=== PATIENT | male | born 1940 | race Caucasian/White ===

== ENCOUNTER 2020-02-17 02:13 | Emergency (ER) | payer MEDICARE, OTHER ==
[2020-02-17 02:28] VITALS: BP 186/78; PULSE 65
--- NOTE | 2020-02-17 03:00 | EDM.PDOC ---
ED HPI GENERAL MEDICAL PROBLEM - General Chief Complaint: Abdominal Pain Stated Complaint: right side abdominal pain Time Seen by Provider: 02/17/20 02:26 Source of Information: Reports: Patient History Limitations: Reports: No Limitations - History of Present Illness INITIAL COMMENTS - FREE TEXT/NARRATIVE: This is an 79-year-old male. Onset around 11 PM with right-sided abdominal pain. He has no history of kidney stones. He is having no urinary symptoms. He did have a bowel movement yesterday morning and he does state he is constipated. He has had no fever no chills no cough no congestion. The abdominal pain does not seem to move anywhere. It is more of a constant throbbing aching type pain. He is able to move about without difficulty and walk with no difficulty despite the abdominal pain. He is he had some slight nausea initially but no nausea now no vomiting. Right Flank Pain Score (Numeric/FACES): 8 - Related Data Allergies Allergy/AdvReac Type Severity Reaction Status Date / Time No Known Allergies Allergy Verified 02/17/20 02:28 Home Meds: Home Meds Aspirin [Halfprin] 81 mg PO DAILY 06/02/14 [History] Calcium Carbonate/Vitamin D3 [Calcium 500-Vit D3 125 Caplet] 1 tab PO BID 06/02/14 [History] Ferrous Sulfate [Iron] 325 mg PO BID 06/02/14 [History] Finasteride [Proscar] 5 mg PO DAILY 06/02/14 [History] Glucosamine/Msm/Chondroitin A [Gpagivtoqxv-Bpyyvzkpv-ZJG Cplt] 1,500 mg PO BID 06/02/14 [History] Lisinopril 5 mg PO DAILY 06/02/14 [History] Metoprolol Succinate 50 mg PO DAILY 06/02/14 [History] Multivitamin [Multivitamins] 1 tab PO DAILY 06/02/14 [History] [place]-3 Fatty Acids [Fish Oil] 1 cap PO DAILY 06/02/14 [History] Omeprazole [Prilosec] 20 mg PO DAILY 06/02/14 [History] Simvastatin [Zocor] 20 mg PO BEDTIME 06/02/14 [History] Tamsulosin [Flomax] 0.4 mg PO DAILY 06/02/14 [History] allopurinoL [Zyloprim] 150 mg PO DAILY 06/02/14 [History] amLODIPine [Norvasc] 1 tab PO DAILY 06/02/14 [History] Acetaminophen/HYDROcodone [[place] 325-5 MG] 1 tab PO Q4H PRN #20 tablet 02/17/20 [Rx] Ondansetron [Zofran] 4 mg PO Q6H PRN #15 tab 02/17/20 [Rx] predniSONE [Prednisone] 1 tab PO DAILY PRN 02/17/20 [History] Past Medical History HEENT History: Reports: Cataract, Hard of Hearing Cardiovascular History: Reports: High Cholesterol, Hypertension Gastrointestinal History: Reports: GERD Genitourinary History: Reports: BPH Musculoskeletal History: Reports: Arthritis, Back Pain, Chronic Neurological History: Reports: Migraines - Past Surgical History HEENT Surgical History: Reports: Cataract Surgery GI Surgical History: Reports: Appendectomy Social & Family History - Family History Family Medical History: Noncontributory - Tobacco Use Smoking Status *Q: Never Smoker Second Hand Smoke Exposure: No - Caffeine Use Caffeine Use: Reports: Soda - Recreational Drug Use Recreational Drug Use: No ED ROS GENERAL - Review of Systems Review Of Systems: See Below Constitutional: Reports: Fatigue. Denies: Fever, Chills HEENT: Reports: No Symptoms Respiratory: Reports: No Symptoms Cardiovascular: Denies: Chest Pain Endocrine: Reports: Fatigue GI/Abdominal: Reports: Abdominal Pain, Constipation, Nausea, Vomiting. Denies: Diarrhea Musculoskeletal: Reports: Other (Generalized joint stiffness) Skin: Reports: No Symptoms Neurological: Reports: No Symptoms Psychiatric: Reports: No Symptoms ED EXAM, GI/ABD - Physical Exam Exam: See Below Exam Limited By: No Limitations General Appearance: Alert, WD/WN, No Apparent Distress Eyes: Bilateral: Normal Appearance Ears: Normal External Exam Nose: Normal Inspection Throat/Mouth: Normal Voice, No Airway Compromise Head: Normocephalic Neck: Limited Range of Motion Respiratory/Chest: No Respiratory Distress, Lungs Clear, Normal Breath Sounds Cardiovascular: Regular Rate, Rhythm, No Murmur GI/Abdominal Exam: Normal Bowel Sounds, Soft, Other (Patient of all 4 quadrants and the right flank does not reveal any marked increased tenderness, there is no peritoneal symptoms and no rebound noted he is not particularly tender in the right lower quadrant or McBurney's point) Back Exam: Decreased Range of Motion Extremities: Normal Inspection, Other (Fair range of motion of his extremity joints) Neurological: Alert, Oriented Psychiatric: Normal Affect, Normal Mood Skin Exam: Warm, Dry Course - Vital Signs Last Recorded V/S: Last Vital Signs Temp 98.6 F 02/17/20 02:23 Pulse 65 02/17/20 02:23 Resp 20 02/17/20 02:23 BP 186/78 H 02/17/20 02:23 Pulse Ox 96 02/17/20 02:23 - Orders/Labs/Meds Orders: Active Orders 24 hr Category Date Time Status Abdomen 2V AP Flat Upright [CR] Stat Exams 02/17/20 02:55 Taken Abdomen Pelvis w Cont [CT] Stat Exams 02/17/20 04:05 Taken Labs: Laboratory Tests 02/17/20 02/17/20 02/17/20 Range/Units 03:08 03:08 03:30 WBC 8.82 (4.23-9.07) K/mm3 RBC 3.77 L (4.63-6.08) M/mm3 Hgb 12.2 L (13.7-17.5) gm/dl Hct 37.1 L (40.1-51.0) % MCV 98.4 H (79.0-92.2) fl MCH 32.4 H (25.7-32.2) pg MCHC 32.9 (32.2-35.5) g/dl RDW Std Deviation 45.8 H (35.1-43.9) fL Plt Count 121 L (163-337) K/mm3 MPV 8.9 L (9.4-12.3) fl Neut % (Auto) 81.2 H (34.0-67.9) % Lymph % (Auto) 10.0 L (21.8-53.1) % Becker % (Auto) 7.9 (5.3-12.2) % Eos % (Auto) 0.6 L (0.8-7.0) Baso % (Auto) 0.1 (0.1-1.2) % Neut # (Auto) 7.16 H (1.78-5.38) K/mm3 Lymph # (Auto) 0.88 L (1.32-3.57) K/mm3 Becker # (Auto) 0.70 (0.30-0.82) K/mm3 Eos # (Auto) 0.05 (0.04-0.54) K/mm3 Baso # (Auto) 0.01 (0.01-0.08) K/mm3 Sodium 141 (136-145) mEq/L Potassium 4.4 (3.5-5.1) mEq/L Chloride 104 (98-107) mEq/L Carbon Dioxide 23 (21-32) mEq/L Anion Gap 18.4 H (5-15) BUN 39 H (7-18) mg/dL Creatinine 2.5 H (0.7-1.3) mg/dL Est Cr Clr Drug Dosing 22.42 mL/min Estimated GFR (MDRD) 25 (>60) mL/min BUN/Creatinine Ratio 15.6 (14-18) Glucose 171 H (83-115) mg/dL Calcium 8.6 (8.5-10.1) mg/dL Total Bilirubin 1.2 H (0.2-1.0) mg/dL AST 22 (15-37) U/L ALT 26 (16-63) U/L Alkaline Phosphatase 48 (46-116) U/L Total Protein 7.2 (6.4-8.2) g/dl Albumin 3.7 (3.4-5.0) g/dl Globulin 3.5 gm/dL Albumin/Globulin Ratio 1.1 (1-2) Urine Color Yellow (Yellow) Urine Appearance Clear (Clear) Urine pH 5.5 (5.0-8.0) Ur Specific [place] 1.025 (1.005-1.030) Urine Protein 2+ H (Negative) Urine Glucose (UA) Negative (Negative) Urine Ketones Negative (Negative) Urine Occult Blood 1+ H (Negative) Urine Nitrite Negative (Negative) Urine Bilirubin Negative (Negative) Urine Urobilinogen 0.2 (0.2-1.0) Ur Leukocyte Esterase 1+ H (Negative) U Hyaline Cast (Auto) 10-20 H (0-5) /lpf Urine RBC 0-5 (0-5) /hpf Urine WBC 20-30 H (0-5) /hpf Urine WBC Clumps Few (NOT SEEN) /hpf Ur Epithelial Cells Not seen (0-5) /hpf Amorphous Sediment Few H (NOT SEEN) /hpf Urine Bacteria Few (FEW) /hpf Urine Mucus Moderate H (FEW) /hpf Meds: Medications Discontinued Medications Generic Name Dose Route Start Last Admin Trade Name Freq PRN Reason Stop Dose Admin Diatrizoate Meglum/Diatrizoate Sod 40 ml 02/17/20 03:30 02/17/20 04:23 Gastrografin 37% PO 02/17/20 03:31 40 ml ONETIME ONE Administration Ketorolac Tromethamine 30 mg 02/17/20 05:38 Toradol IM 02/17/20 05:39 ONETIME ONE Ondansetron HCl 4 mg 02/17/20 05:39 Zofran IVPUSH 02/17/20 05:40 ONETIME ONE - Radiology Interpretation Free Text/Narrative:: CT scan shows a 7 mm right UVJ stone with hydronephrosis - Re-Assessments/Exams Free Text/Narrative Re-Assessment/Exam: 02/17/20 05:43 Spoke to the patient and his regarding the right-sided kidney stone that he is going to need to follow-up with his doctor for because is big and a might not pass Departure - Departure Time of Disposition: 05:44 Disposition: Home, Self-Care 01 Condition: Fair Clinical Impression: Ureteral calculus, right, Renal colic on right side, Nausea - Discharge Information *PRESCRIPTION DRUG MONITORING PROGRAM REVIEWED*: Not Applicable *COPY OF PRESCRIPTION DRUG MONITORING REPORT IN PATIENT ANNIE: Not Applicable Prescriptions: Acetaminophen/HYDROcodone [[place] 325-5 MG] 1 tab PO Q4H PRN #20 tablet PRN Reason: Pain Ondansetron [Zofran] 4 mg PO Q6H PRN #15 tab PRN Reason: Nausea Instructions: Kidney Stones, [id number], Renal Colic, [id number] Referrals: Nasir Dillard PA-C [Primary Care Provider] - Forms: ED Department Discharge Additional Instructions: Strain your urine for the kidney stone every time you urinate, take the medicine for pain and for nausea as needed, drink lots of fluids to help push the stone, follow-up with your family doctor this week for recheck, return to the ER if the symptoms worsen or you develop a fever greater than 101 Sepsis Event Note (ED) - Evaluation Sepsis Screening Result: No Definite Risk - Focused Exam Vital Signs: Vital Signs Temp Pulse Resp BP Pulse Ox 02/17/20 02:23 98.6 F 65 20 186/78 H 96 - My Orders Last 24 Hours: My Active Orders 02/17/20 02:55 Abdomen 2V AP Flat Upright [CR] Stat 02/17/20 04:05 Abdomen Pelvis w Cont [CT] Stat - Assessment/Plan Last 24 Hours: My Active Orders 02/17/20 02:55 Abdomen 2V AP Flat Upright [CR] Stat 02/17/20 04:05 Abdomen Pelvis w Cont [CT] Stat
[2020-02-17] MEDS ORDERED: Diatrizoate Meglumine/Diatrizoate Sodium 37% 120 ML Bottle PO ONE (03:30)
[2020-02-17] MEDS ORDERED: Ketorolac 30 MG/ML SDV IM ONE (05:38)
[2020-02-17] MEDS ORDERED: Ondansetron 4 MG/2 ML SDV IVPUSH ONE (05:39)
--- NOTE | 2020-02-17 07:31 | CR ---
Abdomen: Supine view of the abdomen was obtained as well as upright view. Comparison: Subsequent CT abdomen and pelvis study performed on the same day. Multiple calcifications are seen within the kidneys compatible with nonobstructing calculi. There is 1 calcification within the pelvis which represents a distal right ureteral stone on subsequent CT study. Other calcifications are due to phleboliths as well as mild arterial calcification. Slight scoliosis and degenerative change is noted within the spine. Bowel gas pattern is normal. No free air is seen. Impression: 1. Multiple nonobstructing renal calculi. 2. Calcification is noted within the pelvis which correlates to an obstructing stone on subsequent CT exam. 3. Other findings as noted above which are felt to be nonacute. Diagnostic code #3 Study was dictated in MDT
--- NOTE | 2020-02-17 07:31 | CT ---
CT abdomen and pelvis Technique: Multiple axial sections were obtained from above the dome of the diaphragm inferiorly through the pubic symphysis. Oral contrast has been given. No intravenous contrast was utilized. Comparison: Prior abdominal x-ray performed earlier on same day (3:15 AM). No prior CT abdomen or pelvis exam is available. Prior CT chest of 06/08/14 is available. Findings: Visualized lung bases shows multiple small nodules uncertain 1 nodule shows partial calcification. This is felt compatible with a granuloma. This would make the other nodules most likely due to noncalcified granulomas. In addition, these are felt to be fairly stable from prior chest CT. Noncontrast appearance of the liver and spleen appear within normal limits. Heart is generous in size. Adrenal glands show no nodule. Kidneys show multiple calcifications compatible with nonobstructing calculi. Exophytic cyst is noted off the left kidney measuring 1.7 cm in size. Right ureter is prominent in size which is caused by an obstructing stone located within the UVJ measuring approximately 7 mm. No other ureteral calcifications are seen. Pancreas appears within normal limits. Gallbladder contains no calcified gallstones. Aorta shows atherosclerotic change which continues into the iliac vessels. No retroperitoneal adenopathy or mesenteric abnormalities are seen. Small fat-containing left inguinal hernia is noted. No free fluid or inflammatory changes appreciated. Bone window settings were reviewed which shows scattered degenerative change within the spine. Small fat-containing umbilical hernia is noted. Impression: 1. Multiple nonobstructing calculi within both kidneys. 2. 7 mm obstructing stone within the distal right ureter at the UVJ. This stone causes proximal hydronephrosis. 3. Multiple pulmonary nodules within both lung bases. These findings are felt compatible with granulomas. 4. Other nonacute findings as described above. Diagnostic code #3 Agree with preliminary report issued by [facility] ([facility] preliminary report dictated on 02/17/20, 5:57 AM Central Daylight Time) Study was dictated in MDT
== END 2020-02-17 05:55 | disposition home or self-care (01) ==
LOC: JD.ED 02:13
DX: N20.2 Calculus of kidney with calculus of ureter (principal); E78.00 Pure hypercholesterolemia, unspecified; I10 Essential (primary) hypertension; K21.9 Gastro-esophageal reflux disease without esophagitis; M19.90 Unspecified osteoarthritis, unspecified site; Z79.82 Long term (current) use of aspirin; Z79.899 Other long term (current) drug therapy
CPT/HCPCS: 36415; 74019; 74177; 80053; 81001; 85025; 96372; 96374; 99284; J1885; J2405; Q9963; 99283

== ENCOUNTER 2020-02-19 11:11 | Emergency (ER) | payer MEDICARE, OTHER ==
[2020-02-19] MEDS ORDERED: Metoclopramide 10 MG/2 ML SDV IVPUSH ONE (11:32)
--- NOTE | 2020-02-19 11:36 | EDM.PDOC ---
ED HPI GENERAL MEDICAL PROBLEM - General Chief Complaint: Respiratory Problem Stated Complaint: FEVER/SOB Time Seen by Provider: 02/19/20 11:30 Source of Information: Reports: Patient History Limitations: Reports: No Limitations - History of Present Illness INITIAL COMMENTS - FREE TEXT/NARRATIVE: 79-year-old male presents to the ED from the medicine unit where he was seen in [facility] this morning. Was seen through the ED at 0226 hrs. on February 21 because he developed acute onset of right flank and upper abdominal pain about 2300 hrs. the night prior. He had no history of kidney stones. He was having no urinary symptoms. He was identified on CT to have a dilated right ureter prominent in size caused by an obstructing stone located within the UVJ measuring approximately 7 mm. He had an exophytic cyst noted off the left kidney measuring 1.7 cm in size. No other abnormalities were detected in the liver spleen. Heart was mildly enlarged. Also identified to have multiple small nodules of uncertain etiology in the lung bases. One nodule shows partial calcification. This is felt compatible with a granuloma. This would make the other nodules most likely due to noncalcified granulomas. In addition these of are felt to be fairly stable from prior chest CT he has a small fat-containing left inguinal hernia. Gallbladder contains no gross calcified stones. Also identified of a small fat-containing umbilical hernia. This morning he went to the clinic to get set up for referral to urologist when he developed a fever. Temperature was apparently 99.6 and then went up to 101.2 and he started to have shakes and rigors while visiting with provider. He was therefore sent to the ED for septic work-up. Labs done on February 16 revealed a normal white count at 8.82 with 81.2% neutrophils on the auto differential. Hemoglobin was 12.2 with hematocrit of 37.1. Anion gap was elevated at 18.4 BUN was 39 with a creatinine of 2.5 and GFR was 25 i.e. stage IV renal disease. Glucose 171 calcium is 8.6 urinalysis showed 2+ protein 1+ occult blood 1+ leukocyte esterase 10-20 hyaline casts but 20-30 white blood cells with a few white blood cell clumps indicating a urinary tract infection. She received ketorolac 30 mg IV in the ED with Zofran 4 mg IV. Charged on acetaminophen hydrocodone or [place] tabs 325 5 mg which she has taken 2 since the onset of il lness. Note the patient was not placed on any antibiotics and a urine culture was not obtained at that time. Feels well enough to have any breakfast this morning. He is not having much pain from the kidney stone in the right proximal ureter. Also working okay. He has not noticed any dark-colored urine. Onset: Today Onset Date: 02/19/20 Onset Time: 10:40 Duration: Minutes: Location: Reports: Generalized (acute onset of febrile illness with rigors chills well at his primary care provider this morning) Quality: Reports: Other Severity: Moderate (At onset of fever chills) Improves with: Reports: None Worsens with: Reports: None Context: Denies: Activity, Exercise, Lifting, Sick Contact, Trauma, Other Associated Symptoms: Reports: Fever/Chills, Loss of Appetite, Malaise, Nausea/Vomiting, Shortness of Breath, Weakness. 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: Other (see below) (None.) - Related Data Allergies Allergy/AdvReac Type Severity Reaction Status Date / Time No Known Allergies Allergy Verified 02/17/20 02:28 Home Meds: Home Meds Aspirin [Halfprin] 81 mg PO DAILY 06/02/14 [History] Calcium Carbonate/Vitamin D3 [Calcium 500-Vit D3 125 Caplet] 1 tab PO DAILY 06/02/14 [History] Ferrous Sulfate [Iron] 325 mg PO BID 06/02/14 [History] Finasteride [Proscar] 5 mg PO DAILY 06/02/14 [History] Glucosamine/Msm/Chondroitin A [Rypvtbuxrkh-Lmhtvkvew-KHN Cplt] 1,500 mg PO BID 06/02/14 [History] Lisinopril 5 mg PO DAILY 06/02/14 [History] Metoprolol Succinate 50 mg PO DAILY 06/02/14 [History] Multivitamin [Multivitamins] 1 tab PO DAILY 06/02/14 [History] [place]-3 Fatty Acids [Fish Oil] 1 cap PO DAILY 06/02/14 [History] Omeprazole [Prilosec] 20 mg PO DAILY 06/02/14 [History] Simvastatin [Zocor] 20 mg PO BEDTIME 06/02/14 [History] Tamsulosin [Flomax] 0.4 mg PO DAILY 06/02/14 [History] allopurinoL [Zyloprim] 150 mg PO DAILY 06/02/14 [History] amLODIPine [Norvasc] 1 tab PO DAILY 06/02/14 [History] Acetaminophen/HYDROcodone [[place] 325-5 MG] 1 tab PO Q4H PRN #20 tablet 02/17/20 [Rx] Ondansetron [Zofran] 4 mg PO Q6H PRN #15 tab 02/17/20 [Rx] predniSONE [Prednisone] 1 tab PO DAILY PRN 02/17/20 [History] Past Medical History HEENT History: Reports: Cataract, Hard of Hearing Cardiovascular History: Reports: High Cholesterol, Hypertension Gastrointestinal History: Reports: GERD Genitourinary History: Reports: BPH Musculoskeletal History: Reports: Arthritis, Back Pain, Chronic Neurological History: Reports: Migraines - Past Surgical History HEENT Surgical History: Reports: Cataract Surgery GI Surgical History: Reports: Appendectomy Social & Family History - Family History Family Medical History: Noncontributory - Caffeine Use Caffeine Use: Reports: Soda - Living Situation & Occupation Living situation: Reports: Occupation: Retired [employer] GENERAL - Review of Systems Review Of Systems: See Below Constitutional: Reports: Fever, Chills, Malaise, Weakness, Fatigue, Decreased Appetite HEENT: Reports: Glasses, Hearing Loss Respiratory: Reports: Shortness of Breath (Hard of hearing.). Denies: Wheezing, Pleuritic Chest Pain, Cough, Sputum, Hemoptysis, Other Cardiovascular: Reports: Blood Pressure Problem, Dyspnea on Exertion (Both lower extremities are markedly swollen.), Edema. Denies: Chest Pain, Claudication, Lightheadedness, Orthopnea Endocrine: Reports: Fatigue GI/Abdominal: Reports: Abdominal Pain (Patient on twinges of pain right upper abdomen.), Nausea. Denies: Constipation, Diarrhea, Decreased Appetite, Difficulty Swallowing, Distension, Flatus, Hematemesis, Hematochezia, Melena, Mucous in Stool : Reports: Frequency, Other ( Known BPH.) Musculoskeletal: Reports: Joint Pain ( Santiago x3. His hips lower back neck) Skin: Reports: No Symptoms Neurological: Reports: Confusion (Seems a little confused this morning. May be just overwhelmed by the situation), Dizziness, Difficulty Walking (When he was experiencing the Reiger's.), Weakness. Denies: Headache, Numbness, Syncope, Tingling Psychiatric: Reports: No Symptoms Hematologic/Lymphatic: Reports: No Symptoms Immunologic: Reports: No Symptoms ED EXAM, GENERAL - Physical Exam Exam: See Below Exam Limited By: No Limitations General Appearance: Alert, WD/WN, Moderate Distress (Moderate tachypnea. This is all from fever.), Other (Temperature was recorded at 37.3 here. Heart rate 85 respiratory to 36 with O2 sats of only 91%. BP 1 4971.) Eye Exam: Bilateral Eye: Normal Inspection, PERRL Ears: Normal TMs Throat/Mouth: Normal Inspection, Normal Lips, Normal Oropharynx, Other Head: Atraumatic, Normocephalic (Tongue is mildly dry), Other (Signs of head or facial trauma) Neck: Limited Range of Motion, Tender Lateral (But is on lateral rotation tenderness bilateral cervical spine). No: Non-Tender, Full Range of Motion Respiratory/Chest: No Accessory Muscle Use (Mild decreased breath sounds at lower 20% lung alamo.), Respiratory Distress, Decreased Breath Sounds, Rales (Few rales both bases.). No: Lungs Clear, Normal Breath Sounds, Rhonchi, Wheezing Cardiovascular: Regular Rate, Rhythm, No Gallop, No Murmur, No Rub. No: Normal Peripheral Pulses, No Edema Peripheral Pulses: 0: Posterior Tibial (L) (Pulses are palpable in the feet due to marked dependent edema.), Posterior Tibial (R), Dorsalis Pedis (L), Dorsalis Pedis (R), 2+: Carotid (L), Carotid (R) GI/Abdominal: Normal Bowel Sounds, Soft, Non-Tender, No Organomegaly, No Ab normal Bruit, No Mass, Pelvis Stable (Male) Exam: Hernia (Noted to have inguinal hernia on the left side on CT exam. It is asymptomatic is a known to have a small umbilical hernia noted on CT scan.) Back Exam: Normal Inspection, Decreased Range of Motion. No: CVA Tenderness (L), CVA Tenderness (R) Extremities: Normal Inspection, Other (Osteoarthritic changes appreciated both knees.) Neurological: Alert, Oriented, CN II-XII Intact, Normal Cognition (There is perhaps mildly confused but also overwhelmed by P believe by the situation that he is in.), No Motor/Sensory Deficits Psychiatric: Anxious Skin Exam: Warm, Dry, Intact, Normal Color, No Rash, Other (Medically he is afebrile and much warmer than the temperature recorded triage nurse.) EKG INTERPRETATION EKG Date: 02/19/20 Time: 11:36 Rhythm: NSR Rate (Beats/Min): 85 [place]: LAD-Left Bonifay Deviation (Jason -37 degrees) P-Wave: Present QRS: Other (There is early R wave transition starting in V2 consider right ventricular hypertrophy pattern versus septal hypertrophy. 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 There is a left ventricular appear to be pattern.) QT: Normal EKG Interpretation Comments: Abnormal ECG Course - Vital Signs Last Recorded V/S: Last Vital Signs Temp 40.5 C H 02/19/20 12:25 Pulse 85 02/19/20 11:25 Resp 36 H 02/19/20 11:25 BP 149/71 H 02/19/20 11:25 Pulse Ox 91 L 02/19/20 11:25 - Orders/Labs/Meds Orders: Active Orders 24 hr Category Date Time Status EKG Documentation Completion [RC] STAT Care 02/19/20 11:33 Active CORONAVIRUS COVID-19 TENISHA [MOLEC] Stat Lab 02/19/20 12:30 Received CULTURE BLOOD [BC] Stat Lab 02/19/20 12:37 Received CULTURE BLOOD [BC] Stat Lab 02/19/20 12:48 Received CULTURE URINE [RM] Stat Lab 02/19/20 12:25 Received Dextrose 5%-0.9% NaCl [Dextrose 5%-Normal Saline] 1,000 Med 02/19/20 11:45 Active ml IV ASDIRECTED Blood Culture x2 Reflex Set [OM.PC] Stat Oth 02/19/20 11:33 Ordered Medication Orders Dextrose/Sodium Chloride (Dextrose 5%-Normal Saline) 1,000 mls @ 150 mls/hr IV ASDIRECTED DONNY Last Admin: 02/19/20 12:40 Dose: 150 mls/hr Documented by: JOANNA Labs: Laboratory Tests 02/19/20 02/19/20 02/19/20 Range/Units 12:25 12:37 12:37 WBC 9.82 H (4.23-9.07) K/mm3 RBC 3.58 L (4.63-6.08) M/mm3 Hgb 11.6 L (13.7-17.5) gm/dl Hct 35.3 L (40.1-51.0) % MCV 98.6 H (79.0-92.2) fl MCH 32.4 H (25.7-32.2) pg MCHC 32.9 (32.2-35.5) g/dl RDW Std Deviation 45.0 H (35.1-43.9) fL Plt Count 107 L (163-337) K/mm3 MPV 9.1 L (9.4-12.3) fl Neutrophils % (Manual) 93 H (40-60) % Band Neutrophils % 0 (0-10) % Lymphocytes % (Manual) 5 L (20-40) % Atypical Lymphs % 0 % Monocytes % (Manual) 2 (2-10) % Eosinophils % (Manual) 0 L (0.8-7.0) % Basophils % (Manual) 0 L (0.2-1.2) Toxic Granulation Platelet Estimate Decreased Plt Morphology Comment Normal RBC Morph Comment Normal ESR (0-15) mm/hr PT 11.1 (9.7-12.0) SECONDS INR 1.02 APTT 31 (22-31) SECONDS Puncture Site ABG pH (7.35-7.45) ABG pCO2 (35.0-45.0) mmHg ABG pO2 (80.0-100.0) mmHg ABG HCO3 (22.0-26.0) meq/L ABG O2 Saturation (96.0-97.0) % ABG Base Excess (-2-2.0) Robby Test A-a Gradient mmHg O2 Delivery Device FiO2 (21.00-100.00) % Sodium (136-145) mEq/L Potassium (3.5-5.1) mEq/L Chloride (98-107) mEq/L Carbon Dioxide (21-32) mEq/L Anion Gap (5-15) BUN (7-18) mg/dL Creatinine (0.7-1.3) mg/dL Est Cr Clr Drug Dosing mL/min Estimated GFR (MDRD) (>60) mL/min BUN/Creatinine Ratio (14-18) Glucose (83-115) mg/dL Lactic Acid (0.4-2.0) mmol/L Uric Acid (3.5-7.2) mg/dL Calcium (8.5-10.1) mg/dL Magnesium (1.8-2.4) mg/dl Total Bilirubin (0.2-1.0) mg/dL AST (15-37) U/L ALT (16-63) U/L Alkaline Phosphatase (46-116) U/L CK-MB (CK-2) (0-3.6) ng/ml Troponin I (0.00-0.056) ng/mL C-Reactive Protein (<1.0) mg/dL NT-Pro-B Natriuret Pep (0-450) pg/mL Total Protein (6.4-8.2) g/dl Albumin (3.4-5.0) g/dl Globulin gm/dL Albumin/Globulin Ratio (1-2) Urine Color Yellow (Yellow) Urine Appearance Clear (Clear) Urine pH 5.5 (5.0-8.0) Ur Specific [place] 1.020 (1.005-1.030) Urine Protein 2+ H (Negative) Urine Glucose (UA) Negative (Negative) Urine Ketones Negative (Negative) Urine Occult Blood Trace-lysed H (Negative) Urine Nitrite Negative (Negative) Urine Bilirubin Negative (Negative) Urine Urobilinogen 0.2 (0.2-1.0) Ur Leukocyte Esterase 2+ H (Negative) U Hyaline Cast (Auto) 0-5 (0-5) /lpf Urine RBC 0-5 (0-5) /hpf Urine WBC 30-40 H (0-5) /hpf Ur Squamous Epith Cells 0-5 (0-5) /hpf Urine Bacteria Few (FEW) /hpf Urine Mucus Few (FEW) /hpf 02/19/20 02/19/20 02/19/20 Range/Units 12:37 12:37 12:37 WBC (4.23-9.07) K/mm3 RBC (4.63-6.08) M/mm3 Hgb (13.7-17.5) gm/dl Hct (40.1-51.0) % MCV (79.0-92.2) fl MCH (25.7-32.2) pg MCHC (32.2-35.5) g/dl RDW Std Deviation (35.1-43.9) fL Plt Count (163-337) K/mm3 MPV (9.4-12.3) fl Neutrophils % (Manual) (40-60) % Band Neutrophils % (0-10) % Lymphocytes % (Manual) (20-40) % Atypical Lymphs % % Monocytes % (Manual) (2-10) % Eosinophils % (Manual) (0.8-7.0) % Basophils % (Manual) (0.2-1.2) Toxic Granulation Platelet Estimate Plt Morphology Comment RBC Morph Comment ESR 40 H (0-15) mm/hr PT (9.7-12.0) SECONDS INR APTT (22-31) SECONDS Puncture Site ABG pH (7.35-7.45) ABG pCO2 (35.0-45.0) mmHg ABG pO2 (80.0-100.0) mmHg ABG HCO3 (22.0-26.0) meq/L ABG O2 Saturation (96.0-97.0) % ABG Base Excess (-2-2.0) Robby Test A-a Gradient mmHg O2 Delivery Device FiO2 (21.00-100.00) % Sodium 139 (136-145) mEq/L Potassium 4.3 (3.5-5.1) mEq/L Chloride 101 (98-107) mEq/L Carbon Dioxide 23 (21-32) mEq/L Anion Gap 19.3 H (5-15) BUN 50 H (7-18) mg/dL Creatinine 3.6 H (0.7-1.3) mg/dL Est Cr Clr Drug Dosing 15.57 mL/min Estimated GFR (MDRD) 16 (>60) mL/min BUN/Creatinine Ratio 13.9 L (14-18) Glucose 111 (83-115) mg/dL Lactic Acid 1.1 (0.4-2.0) mmol/L Uric Acid 6.9 (3.5-7.2) mg/dL Calcium 8.9 (8.5-10.1) mg/dL Magnesium 1.6 L (1.8-2.4) mg/dl Total Bilirubin 1.8 H (0.2-1.0) mg/dL AST 14 L (15-37) U/L ALT 20 (16-63) U/L Alkaline Phosphatase 46 (46-116) U/L CK-MB (CK-2) 1.1 (0-3.6) ng/ml Troponin I 0.020 (0.00-0.056) ng/mL C-Reactive Protein 17.4 H* (<1.0) mg/dL NT-Pro-B Natriuret Pep (0-450) pg/mL Total Protein 7.1 (6.4-8.2) g/dl Albumin 3.3 L (3.4-5.0) g/dl Globulin 3.8 gm/dL Albumin/Globulin Ratio 0.9 L (1-2) Urine Color (Yellow) Urine Appearance (Clear) Urine pH (5.0-8.0) Ur Specific [place] (1.005-1.030) Urine Protein (Negative) Urine Glucose (UA) (Negative) Urine Ketones (Negative) Urine Occult Blood (Negative) Urine Nitrite (Negative) Urine Bilirubin (Negative) Urine Urobilinogen (0.2-1.0) Ur Leukocyte Esterase (Negative) U Hyaline Cast (Auto) (0-5) /lpf Urine RBC (0-5) /hpf Urine WBC (0-5) /hpf Ur Squamous Epith Cells (0-5) /hpf Urine Bacteria (FEW) /hpf Urine Mucus (FEW) /hpf 02/19/20 02/19/20 Range/Units 12:37 12:46 WBC (4.23-9.07) K/mm3 RBC (4.63-6.08) M/mm3 Hgb (13.7-17.5) gm/dl Hct (40.1-51.0) % MCV (79.0-92.2) fl MCH (25.7-32.2) pg MCHC (32.2-35.5) g/dl RDW Std Deviation (35.1-43.9) fL Plt Count (163-337) K/mm3 MPV (9.4-12.3) fl Neutrophils % (Manual) (40-60) % Band Neutrophils % (0-10) % Lymphocytes % (Manual) (20-40) % Atypical Lymphs % % Monocytes % (Manual) (2-10) % Eosinophils % (Manual) (0.8-7.0) % Basophils % (Manual) (0.2-1.2) Toxic Granulation Platelet Estimate Plt Morphology Comment RBC Morph Comment ESR (0-15) mm/hr PT (9.7-12.0) SECONDS INR APTT (22-31) SECONDS Puncture Site Rt radial ABG pH 7.46 H (7.35-7.45) ABG pCO2 31.5 L (35.0-45.0) mmHg ABG pO2 58.0 L (80.0-100.0) mmHg ABG HCO3 22.0 (22.0-26.0) meq/L ABG O2 Saturation 88.4 L (96.0-97.0) % ABG Base Excess -0.7 (-2-2.0) Robby Test Positive A-a Gradient 52 mmHg O2 Delivery Device Room air FiO2 21.00 (21.00-100.00) % Sodium (136-145) mEq/L Potassium (3.5-5.1) mEq/L Chloride (98-107) mEq/L Carbon Dioxide (21-32) mEq/L Anion Gap (5-15) BUN (7-18) mg/dL Creatinine (0.7-1.3) mg/dL Est Cr Clr Drug Dosing mL/min Estimated GFR (MDRD) (>60) mL/min BUN/Creatinine Ratio (14-18) Glucose (83-115) mg/dL Lactic Acid (0.4-2.0) mmol/L Uric Acid (3.5-7.2) mg/dL Calcium (8.5-10.1) mg/dL Magnesium (1.8-2.4) mg/dl Total Bilirubin (0.2-1.0) mg/dL AST (15-37) U/L ALT (16-63) U/L Alkaline Phosphatase (46-116) U/L CK-MB (CK-2) (0-3.6) ng/ml Troponin I (0.00-0.056) ng/mL C-Reactive Protein (<1.0) mg/dL NT-Pro-B Natriuret Pep 1758 H (0-450) pg/mL Total Protein (6.4-8.2) g/dl Albumin (3.4-5.0) g/dl Globulin gm/dL Albumin/Globulin Ratio (1-2) Urine Color (Yellow) Urine Appearance (Clear) Urine pH (5.0-8.0) Ur Specific [place] (1.005-1.030) Urine Protein (Negative) Urine Glucose (UA) (Negative) Urine Ketones (Negative) Urine Occult Blood (Negative) Urine Nitrite (Negative) Urine Bilirubin (Negative) Urine Urobilinogen (0.2-1.0) Ur Leukocyte Esterase (Negative) U Hyaline Cast (Auto) (0-5) /lpf Urine RBC (0-5) /hpf Urine WBC (0-5) /hpf Ur Squamous Epith Cells (0-5) /hpf Urine Bacteria (FEW) /hpf Urine Mucus (FEW) /hpf Meds: Medications Generic Name Dose Route Start Last Admin Trade Name Freq PRN Reason Stop Dose Admin Dextrose/Sodium Chloride 1,000 mls @ 150 mls/hr 02/19/20 11:45 02/19/20 12:40 Dextrose 5%-Normal Saline IV 150 mls/hr ASDIRECTED DONNY Administration Discontinued Medications Generic Name Dose Route Start Last Admin Trade Name Freq PRN Reason Stop Dose Admin Acetaminophen 650 mg 02/19/20 11:49 02/19/20 12:25 Tylenol PO 02/19/20 11:50 650 mg ONETIME ONE Administration Furosemide 40 mg 02/19/20 15:14 Lasix IVPUSH 02/19/20 15:15 NOW ONE Ceftriaxone Sodium 2 gm/ 100 mls @ 200 mls/hr 02/19/20 11:59 02/19/20 12:43 Sodium Chloride IV 02/19/20 12:28 200 mls/hr ONETIME ONE Administration Metoclopramide HCl 7.5 mg 02/19/20 11:32 02/19/20 12:42 Reglan IVPUSH 02/19/20 11:33 7.5 mg ONETIME ONE Administration - Radiology Interpretation Free Text/Narrative:: 79-year-old male sent to the ED from the family medicine unit as he developed sudden onset of fever chills with rigors while at the primary care providers checkup. He was sent there for evaluation of right kidney stone which is obstructing the right ureter at the UVJ. He was found have a [address] scan on the hours of February 16 when he presented with 3-hour history of right flank and upper abdominal pain. Looking at the chart the urinalysis done at that time showed 20-30 white blood cells per high-power field with a few clumps of white cells suggesting an infective process in the urinary tract. He was not treated with any antibiotics. He states the kidney stone is been bothering very much he is taken 2 pain pills which is [place] 12/30/2024 since discharge from the hospital and nothing for nausea. Currently he has a fever with chills and rigors and will have a septic work-up. Started on Rocephin 2 g IV as soon as blood cultures are done. Tylenol 650 mg per mouth for fever relief. Reglan 7.5 mg IV for nausea relief. - Re-Assessments/Exams Free Text/Narrative Re-Assessment/Exam: 02/19/20 12:33 CXR reveals that he is rotated to the right. He does show evidence of mild cardiomegaly. There is a tortuous thoracic aorta appreciated. Lungs are clear with no acute parenchymal changes. Bony structures appear to be grossly normal. Pneumonia identified 02/19/20 13:29 White count is 9.82. Differential is pending. Hemoglobin is 11.6 hematocrit is 35.3 MCV elevated at 98.6. Platelet count is low normal at 107,000. PT is 11.1 with an INR of 1.02. PTT is 31. ABGs reveal a pH of 7.46 with a PCO2 of 31.5 PO2 was 58 on the low side bicarb is 22.0 sats were 88.4% on room air. Patient was placed on oxygen by nasal cannula at 3 L/min. 02/19/20 13:47 Sodium is 139 with a potassium of 4.3. Chloride is 101 with a bicarb of 23. Anion gap is elevated at 19.3. BUN is 50 with a creatinine of 3.6. BUN/creatinine ratio is 13.9 GFR is now 16 which is severe grade 4 renal insufficiency. 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 AST is 14 with an ALT of 20. Alk phos days is 46. CK-MB fraction is 1.1. Troponin I is less than 0.020. C-reactive protein is pending . Total protein is 7.1 with an albumin fraction slightly low at 3.3. Her awaiting the CRP and the urinalysis. Appears he will require traveling to [place] to have emergent lithotripsy or stent placement as his kidney function is deteriorating likely due to high-grade obstruction 02/19/20 14:02 Differential of the WBC is 93% neutrophils and no bands cells. Sed rate is 40. C-reactive protein is 17.4. Urinalysis is not yet available. 02/19/20 14:40 Urinalysis is yellow contains 2+ proteinuria trace lysed occult blood 2+ leukocyte esterase. 02/19/20 15:22 I have spoken to the 1 call service at [facility] in [place] and spoke with Dr. Joshi on-call urologist who has accepted care and --hospitalist has excepted care. The patient is to be a direct admit [facility] the [facility]. Will be transported to that facility per ground ambulance. Departure - Departure Time of Disposition: 15:56 Disposition: DC/Tfer to Acute Hospital 02 Condition: Serious Clinical Impression: Urinary tract obstruction by kidney stone, Acute febrile illness, Hypoxia, COPD suggested by initial evaluation Urinary tract infection Qualifiers: Urinary tract infection type: acute pyelonephritis Qualified Code(s): N10 - Acute pyelonephritis Congestive heart failure Qualifiers: Heart failure chronicity: acute on chronic - Discharge Information *PRESCRIPTION DRUG MONITORING PROGRAM REVIEWED*: Not Applicable *COPY OF PRESCRIPTION DRUG MONITORING REPORT IN PATIENT ANNIE: Not Applicable Referrals: aNsir Dillard PA-C [Primary Care Provider] - Forms: ED Department Discharge Additional Instructions: Patient transferred to [facility] in [place] for urology consultation and treatment. Obstructing 7 mm stone right proximal ureter at the UVJ decline in renal function over the last 2 days. Associated development of urinary tract infection with bacteremia and high fever. Requires emergent management with stenting to bypass stone right proximal ureter to maintain renal function which is very poor at this time. Sepsis Event Note (ED) - Evaluation Sepsis Screening Result: No Definite Risk - Focused Exam Vital Signs: Vital Signs Temp Temp Pulse Resp BP Pulse Ox 02/19/20 12:25 40.5 C H 02/19/20 12:06 40.5 C H 02/19/20 11:25 37.3 C 85 36 H 149/71 H 91 L - My Orders Last 24 Hours: My Active Orders 02/19/20 11:33 EKG Documentation Completion [RC] STAT Blood Culture x2 Reflex Set [OM.PC] Stat 02/19/20 11:45 Dextrose 5%-0.9% NaCl [Dextrose 5%-Normal Saline] 1,000 ml IV ASDIRECTED 02/19/20 12:25 CULTURE URINE [RM] Stat 02/19/20 12:30 CORONAVIRUS COVID-19 TENISHA [MOLEC] Stat 02/19/20 12:37 CULTURE BLOOD [BC] Stat 02/19/20 12:48 CULTURE BLOOD [BC] Stat - Assessment/Plan Last 24 Hours: My Active Orders 02/19/20 11:33 EKG Documentation Completion [RC] STAT Blood Culture x2 Reflex Set [OM.PC] Stat 02/19/20 11:45 Dextrose 5%-0.9% NaCl [Dextrose 5%-Normal Saline] 1,000 ml IV ASDIRECTED 02/19/20 12:25 CULTURE URINE [RM] Stat 02/19/20 12:30 CORONAVIRUS COVID-19 TENISHA [MOLEC] Stat 02/19/20 12:37 CULTURE BLOOD [BC] Stat 02/19/20 12:48 CULTURE BLOOD [BC] Stat
[2020-02-19] MEDS ORDERED: Dextrose 5%-0.9% NaCl 1,000 ML IV SCH (11:45)
[2020-02-19] MEDS ORDERED: Acetaminophen 325 MG Tab PO ONE (11:49)
[2020-02-19] MEDS ORDERED: cefTRIAXone 2 GM in Sodium Chloride 0.9% 100 ML IV ONE (11:59)
--- NOTE | 2020-02-19 12:22 | CR ---
Chest: AP view of the chest was obtained. Comparison: Prior chest x-ray of 06/02/14. Heart size is normal. Tortuous thoracic aorta is seen. Lungs are clear with no acute parenchymal change. Bony structures are grossly intact. Impression: 1. Nothing acute is seen on AP chest x-ray. Diagnostic code #2 This report was dictated in MDT
[2020-02-19] MEDS ORDERED: Furosemide 40 MG/4 ML VIAL IVPUSH ONE (15:14)
[2020-02-19 17:45] VITALS: BP 130/57; PULSE 80
== END 2020-02-19 16:15 ==
LOC: JD.ED 11:11
DX: N10 Acute pyelonephritis (principal); N20.0 Calculus of kidney; R09.02 Hypoxemia; I11.0 Hypertensive heart disease with heart failure; I50.9 Heart failure, unspecified; E78.00 Pure hypercholesterolemia, unspecified; K21.9 Gastro-esophageal reflux disease without esophagitis; N40.0 Benign prostatic hyperplasia without lower urinary tract symptoms; M19.90 Unspecified osteoarthritis, unspecified site; Z79.82 Long term (current) use of aspirin; Z79.899 Other long term (current) drug therapy
CPT/HCPCS: 36415; 36600; 71045; 80053; 81001; 82553; 82803; 83605; 83735; 83880; 84484; 84550; 85007; 85027; 85610; 85652; 85730; 86140; 87040; 87086; 87088; 87186; 93005; 96361; 96365; 96375; 99285; A9270; J0696; J1940; J2765; J7042; J7050; U0002; 93010

== ENCOUNTER 2022-06-15 14:01 | Emergency (ER) | payer MEDICARE, OTHER ==
[2022-06-15 14:39] VITALS: BP 177/73; PULSE 77
[2022-06-15] MEDS ORDERED: traMADol 50 MG Tab PO ONE (15:27)
== END 2022-06-15 16:43 | disposition home or self-care (01) ==
LOC: JD.ED 14:01
DX: S69.91XA Unspecified injury of right wrist, hand and finger(s), initial encounter (principal); E78.00 Pure hypercholesterolemia, unspecified; I10 Essential (primary) hypertension; K21.9 Gastro-esophageal reflux disease without esophagitis; N40.0 Benign prostatic hyperplasia without lower urinary tract symptoms; M19.90 Unspecified osteoarthritis, unspecified site; Z79.82 Long term (current) use of aspirin; Z79.899 Other long term (current) drug therapy
CPT/HCPCS: 73110; 99283; A9270; 99284

== ENCOUNTER 2022-12-23 09:53 | Emergency (ER) | payer MEDICARE, OTHER ==
[2022-12-23 10:08] VITALS: BP 164/77; PULSE 61
== END 2022-12-23 12:35 | disposition home or self-care (01) ==
LOC: JD.ED 09:53
DX: S62.645A Nondisplaced fracture of proximal phalanx of left ring finger, initial encounter for closed fracture (principal); S62.647A Nondisplaced fracture of proximal phalanx of left little finger, initial encounter for closed fracture; S00.81XA Abrasion of other part of head, initial encounter; S00.31XA Abrasion of nose, initial encounter; E78.00 Pure hypercholesterolemia, unspecified; I10 Essential (primary) hypertension; K21.9 Gastro-esophageal reflux disease without esophagitis; M19.90 Unspecified osteoarthritis, unspecified site; Z79.82 Long term (current) use of aspirin; Z79.899 Other long term (current) drug therapy; W01.0XXA Fall on same level from slipping, tripping and stumbling without subsequent striking against object, initial encounter; Y93.01 Activity, walking, marching and hiking
CPT/HCPCS: 29125; 73130-26-LT; 73130-LT; 99283; 99284

== ENCOUNTER 2023-05-18 14:36 | Emergency (ER) | payer MEDICARE, OTHER ==
[2023-05-18 15:35] LABS: BASOPHILS PERCENT AUTO 0.5 % (0.0-1.0); EOSINOPHILS ABSOLUTE AUTO 0.2 K/mm3 (0.0-0.4); EOSINOPHILS PERCENT AUTO 3.3 % (0.0-6.0); HEMATOCRIT 28.6 % (42.0-52.0); HEMOGLOBIN 9.3 gm/dl (14.0-18.0); IMMATURE GRAN ABSOLUTE AUTO 0.04 K/mm3 (0.00-0.05); IMMATURE GRAN PERCENT AUTO 0.6 % (0.0-0.4); LYMPHOCYTES ABSOLUTE AUTO 1.4 K/mm3 (1.0-4.8); MEAN CORPUSCULAR HEMOGLOBIN 31.7 pg (28.0-32.0); MEAN CORPUSCULAR HGB CONC 32.5 g/dl (32.0-36.0); MEAN CORPUSCULAR VOLUME 97.6 fl (83.0-99.0); MEAN PLATELET VOLUME 8.7 fl (9.4-12.4); MONOCYTES ABSOLUTE AUTO 0.5 K/mm3 (0.0-0.8); MONOCYTES PERCENT AUTO 8.2 % (0.0-8.0); NEUTROPHILS ABSOLUTE AUTO 4.4 K/mm3 (1.8-7.7); NEUTROPHILS PERCENT AUTO 66.4 % (41.0-71.0); PLATELET COUNT,PLT 184 K/mm3 (150-400); RED BLOOD CELL COUNT 2.93 M/mm3 (4.52-5.90); WHITE BLOOD CELL COUNT,WBC 6.58 K/mm3 (3.9-11.3)
[2023-05-18 16:00] LABS: ALANINE AMINOTRANSFERASE,ALT 6 U/L (16-63); ALBUMIN 3.2 g/dl (3.4-5.0); ALKALINE PHOSPHATASE 54 U/L (46-116); ANION GAP 10.3 (5-15); ASPARTATE AMNIOTRANSFERASE,AST 16 U/L (15-37); BILIRUBIN TOTAL 1.1 mg/dL (0.2-1.0); BLOOD UREA NITROGEN,BUN 34 mg/dL (7-18); BUN/CREATININE RATIO 18.9 (14-18); CALCIUM 8.9 mg/dL (8.5-10.1); CARBON DIOXIDE,CO2 31 mEq/L (21-32); CHLORIDE,CL 103 mEq/L (98-107); CREATININE 1.8 mg/dL (0.7-1.3); EST CRCL DRUG DOSING (CG) 28.56 mL/min; ESTIMATED GFR 37 mL/min (>60); GLUCOSE RANDOM 109 mg/dL (70-99); POTASSIUM,K 3.3 mEq/L (3.5-5.1); PROTEIN TOTAL,TP 6.5 g/dl (6.4-8.2); SODIUM,NA 141 mEq/L (136-145); URIC ACID 6.5 mg/dL (3.5-7.2)
[2023-05-18 16:17] LABS: C-REACTIVE PROTEIN < 0.2 mg/dL (<1.0)
[2023-05-18 18:32] VITALS: BP 167/74; PULSE 74
== END 2023-05-18 18:05 | disposition home or self-care (01) ==
LOC: JD.ED 14:36
DX: M25.461 Effusion, right knee (principal); I10 Essential (primary) hypertension; E78.00 Pure hypercholesterolemia, unspecified; K21.9 Gastro-esophageal reflux disease without esophagitis; Z79.899 Other long term (current) drug therapy
CPT/HCPCS: 36415; 73562-26-RT; 73562-RT; 80053; 84550; 85025; 85652; 86140; 99283

== ENCOUNTER 2024-01-26 12:26 | Emergency (ER) | payer MEDICARE, OTHER ==
[2024-01-26] MEDS: Acetaminophen 325 MG Tab PO ONE (13:44)
[2024-01-26 16:23] VITALS: BP 110/82; PULSE 52
== END 2024-01-26 13:10 | disposition home or self-care (01) ==
LOC: JD.ED 12:26
DX: M54.2 Cervicalgia (principal); I10 Essential (primary) hypertension; K21.9 Gastro-esophageal reflux disease without esophagitis; M19.90 Unspecified osteoarthritis, unspecified site; E78.00 Pure hypercholesterolemia, unspecified; Z79.82 Long term (current) use of aspirin; Z79.899 Other long term (current) drug therapy; Z90.49 Acquired absence of other specified parts of digestive tract
CPT/HCPCS: 99283; A9270

== ENCOUNTER 2024-06-24 14:14 | Emergency (ER) | payer MEDICARE, OTHER ==
[2024-06-24 15:53] LABS: BASOPHILS PERCENT AUTO 0.5 % (0.0-1.0); EOSINOPHILS ABSOLUTE AUTO 0.3 K/mm3 (0.0-0.4); HEMATOCRIT 26.3 % (42.0-52.0); HEMOGLOBIN 8.5 gm/dl (14.0-18.0); IMMATURE GRAN ABSOLUTE AUTO 0.02 K/mm3 (0.00-0.05); IMMATURE GRAN PERCENT AUTO 0.3 % (0.0-0.4); LYMPHOCYTES ABSOLUTE AUTO 1.5 K/mm3 (1.0-4.8); LYMPHOCYTES PERCENT AUTO 25.2 % (24.0-44.0); MEAN CORPUSCULAR HEMOGLOBIN 31.5 pg (28.0-32.0); MEAN CORPUSCULAR HGB CONC 32.3 g/dl (32.0-36.0); MEAN CORPUSCULAR VOLUME 97.4 fl (83.0-99.0); MEAN PLATELET VOLUME 9.2 fl (9.4-12.4); MONOCYTES ABSOLUTE AUTO 0.5 K/mm3 (0.0-0.8); MONOCYTES PERCENT AUTO 8.6 % (0.0-8.0); NEUTROPHILS ABSOLUTE AUTO 3.6 K/mm3 (1.8-7.7); NEUTROPHILS PERCENT AUTO 60.4 % (41.0-71.0); PLATELET COUNT,PLT 151 K/mm3 (150-400); WHITE BLOOD CELL COUNT,WBC 5.96 K/mm3 (3.9-11.3)
[2024-06-24 16:23] LABS: A/G RATIO 0.8 (1-2); ALBUMIN 3.2 g/dl (3.4-5.0); ANION GAP 10.3 (5-15); BILIRUBIN TOTAL 0.8 mg/dL (0.2-1.0); BUN/CREATININE RATIO 19.7 (14-18); CALCIUM 8.9 mg/dL (8.5-10.1); CREATININE 2.9 mg/dL (0.7-1.3); EST CRCL DRUG DOSING (CG) 17.69 mL/min; POTASSIUM,K 3.3 mEq/L (3.5-5.1)
[2024-06-24 16:42] VITALS: BP 171/74; PULSE 66
== END 2024-06-24 16:30 | disposition home or self-care (01) ==
LOC: JD.ED 14:14
DX: R04.0 Epistaxis (principal); E78.00 Pure hypercholesterolemia, unspecified; I10 Essential (primary) hypertension; K21.9 Gastro-esophageal reflux disease without esophagitis; Z90.49 Acquired absence of other specified parts of digestive tract; Z79.82 Long term (current) use of aspirin; Z79.899 Other long term (current) drug therapy
CPT/HCPCS: 30901; 36415; 80053; 85025; 99283; 99283-25

== ENCOUNTER 2024-08-08 20:34 | Inpatient (IN) | payer MEDICARE, OTHER ==
[2024-08-08 21:05] LABS: BASOPHILS PERCENT AUTO 0.6 % (0.0-1.0); EOSINOPHILS ABSOLUTE AUTO 0.2 K/mm3 (0.0-0.4); EOSINOPHILS PERCENT AUTO 3.9 % (0.0-6.0); HEMATOCRIT 26.3 % (42.0-52.0); HEMOGLOBIN 8.5 gm/dl (14.0-18.0); IMMATURE GRAN ABSOLUTE AUTO 0.01 K/mm3 (0.00-0.05); IMMATURE GRAN PERCENT AUTO 0.2 % (0.0-0.4); LYMPHOCYTES ABSOLUTE AUTO 1.5 K/mm3 (1.0-4.8); LYMPHOCYTES PERCENT AUTO 27.3 % (24.0-44.0); MEAN CORPUSCULAR HEMOGLOBIN 31.3 pg (28.0-32.0); MEAN CORPUSCULAR HGB CONC 32.3 g/dl (32.0-36.0); MEAN CORPUSCULAR VOLUME 96.7 fl (83.0-99.0); MEAN PLATELET VOLUME 9.1 fl (9.4-12.4); MONOCYTES ABSOLUTE AUTO 0.5 K/mm3 (0.0-0.8); MONOCYTES PERCENT AUTO 9.7 % (0.0-8.0); NEUTROPHILS ABSOLUTE AUTO 3.2 K/mm3 (1.8-7.7); NEUTROPHILS PERCENT AUTO 58.3 % (41.0-71.0); PLATELET COUNT,PLT 162 K/mm3 (150-400); RED BLOOD CELL COUNT 2.72 M/mm3 (4.52-5.90); WHITE BLOOD CELL COUNT,WBC 5.45 K/mm3 (3.9-11.3)
[2024-08-08 21:33] LABS: APPEARANCE,URINE CLEAR (Clear); BILIRUBIN,URINE NEGATIVE (Negative); COLOR,URINE YELLOW (Yellow); GLUCOSE,URINE NEGATIVE (Negative); KETONES,URINE NEGATIVE (Negative); LEUKOCYTE ESTERASE,URINE NEGATIVE (Negative); NITRITE,URINE NEGATIVE (Negative); OCCULT BLOOD,URINE NEGATIVE (Negative); PROTEIN,URINE TRACE (Negative); UROBILINOGEN,URINE 0.2 (0.2-1.0)
[2024-08-08 21:44] LABS: BACTERIA,URINE OCCASIONAL /hpf (FEW); BARBITURATE SCREEN,URINE NEGATIVE (CUTOFF=200); BENZODIAZEPINES SCREEN,URINE NEGATIVE (CUTOFF=150); BUPRENORPHINE SCREEN,URINE NEGATIVE (CUTOFF=10); METHADONE SCREEN, URINE NEGATIVE (CUT0FF=200); METHAMPHETAMINES SCREEN, URINE NEGATIVE (CUTOFF=500); MUCUS,URINE FEW /hpf (FEW); OXYCODONE SCREEN,URINE NEGATIVE (CUT0FF=100); RBC,URINE 0-5 /hpf (0-5); SQUAMOUS EPITHELIAL CELLS,UR 0-5 /hpf (0-5); THC SCREEN,URINE 20 NG/ML NEGATIVE (CUTOFF=50); WBC,URINE 0-5 /hpf (0-5)
[2024-08-08 21:45] LABS: AMPHETAMINES SCREEN, URINE NEGATIVE (CUTOFF=500)
[2024-08-08 21:45] LABS: A/G RATIO 0.9 (1-2); ALBUMIN 3.2 g/dl (3.4-5.0); ANION GAP 13.7 (5-15); BILIRUBIN TOTAL 0.9 mg/dL (0.2-1.0); BUN/CREATININE RATIO 17.5 (14-18); CALCIUM 9.2 mg/dL (8.5-10.1); EST CRCL DRUG DOSING (CG) 22.2 mL/min; MAGNESIUM 1.6 mg/dL (1.8-2.4); POTASSIUM,K 3.7 mEq/L (3.5-5.1); PROTEIN TOTAL,TP 6.9 g/dl (6.4-8.2)
[2024-08-08] MEDS ORDERED: Magnesium Sulfate (4.06 MEQ/ML) 5 GM/10 ML SDV IV ONE (22:29)
[2024-08-09] MEDS: Furosemide 20 MG/2 ML VIAL IVPUSH ONE (00:08)
[2024-08-09] MEDS: Sodium Chloride 0.9% 10 ML Syringe FLUSH PRN (00:18)
[2024-08-09] MEDS: Iopamidol 755 Mg/ML 100 ML Bottle IVPUSH ONE (01:11)
[2024-08-09] MEDS ORDERED: Carbidopa/Levodopa 25-100 MG Tab PO ONE (02:52)
[2024-08-09] MEDS: Carbidopa/Levodopa 25-100 MG Tab.ER PO ONE (03:43)
[2024-08-09] MEDS: Metoprolol Tartrate 5 MG/5 ML SDV IVPUSH ONE ×2 (03:43→04:50)
[2024-08-09] MEDS: Metoprolol Succinate 25 MG Tab.ER PO ONE (04:50)
[2024-08-09] MEDS: Aspirin 81 MG Tab.Chew PO ONE (13:23)
[2024-08-09] MEDS ORDERED: 50% Dextrose in Water 50 ML Syringe IVPUSH PRN (13:36)
[2024-08-09] MEDS: atorvaSTATin 40 MG Tab PO ONE (14:38)
[2024-08-09 15:36] LABS: HEMOGLOBIN A1C 5.6 %
[2024-08-09 15:46] LABS: TSH 10.27 uIU/mL (0.358-3.74)
[2024-08-09 18:29] LABS: T4 FREE 0.64 ng/dL (0.76-1.46)
[2024-08-09] MEDS: Insulin Lispro 100 Unit/ML 3 ML KwikPen SUBCUT SCH (18:29)
[2024-08-09] MEDS: Acetaminophen 325 MG Tab PO PRN (21:06)
[2024-08-09] MEDS: Sodium Bicarbonate 650 MG Tab PO SCH (21:07)
[2024-08-09] MEDS: Hydrochlorothiazide 25 MG Tab PO SCH (21:08)
[2024-08-10] MEDS: Sodium Chloride 0.9% 1,000 ML IV SCH (02:10)
[2024-08-10 04:41] LABS: BASOPHILS PERCENT AUTO 0.5 % (0.0-1.0); EOSINOPHILS ABSOLUTE AUTO 0.1 K/mm3 (0.0-0.4); EOSINOPHILS PERCENT AUTO 0.9 % (0.0-6.0); HEMATOCRIT 30.4 % (42.0-52.0); HEMOGLOBIN 10.2 gm/dl (14.0-18.0); IMMATURE GRAN ABSOLUTE AUTO 0.02 K/mm3 (0.00-0.05); IMMATURE GRAN PERCENT AUTO 0.3 % (0.0-0.4); LYMPHOCYTES ABSOLUTE AUTO 1.5 K/mm3 (1.0-4.8); LYMPHOCYTES PERCENT AUTO 19.3 % (24.0-44.0); MEAN CORPUSCULAR HGB CONC 33.6 g/dl (32.0-36.0); MEAN CORPUSCULAR VOLUME 92.4 fl (83.0-99.0); MEAN PLATELET VOLUME 8.9 fl (9.4-12.4); MONOCYTES ABSOLUTE AUTO 0.8 K/mm3 (0.0-0.8); MONOCYTES PERCENT AUTO 9.7 % (0.0-8.0); NEUTROPHILS ABSOLUTE AUTO 5.4 K/mm3 (1.8-7.7); NEUTROPHILS PERCENT AUTO 69.3 % (41.0-71.0); PLATELET COUNT,PLT 186 K/mm3 (150-400); RED BLOOD CELL COUNT 3.29 M/mm3 (4.52-5.90); WHITE BLOOD CELL COUNT,WBC 7.73 K/mm3 (3.9-11.3)
[2024-08-10 05:10] LABS: A/G RATIO 0.7 (1-2); ALKALINE PHOSPHATASE 72 U/L (46-116); ANION GAP 14.6 (5-15); ASPARTATE AMNIOTRANSFERASE,AST 19 U/L (15-37); BILIRUBIN TOTAL 1.2 mg/dL (0.2-1.0); BLOOD UREA NITROGEN,BUN 36 mg/dL (7-18); BUN/CREATININE RATIO 16.4 (14-18); CALCIUM 9.2 mg/dL (8.5-10.1); CARBON DIOXIDE,CO2 27 mEq/L (21-32); CHLORIDE,CL 102 mEq/L (98-107); CHOLESTEROL HDL 62 mg/dL (40-59); CHOLESTEROL LDL DIRECT 64 mg/dL (<100); CHOLESTEROL TOTAL 127 mg/dL (<200); CREATININE 2.2 mg/dL (0.7-1.3); ESTIMATED GFR 28 mL/min (>60); GLUCOSE RANDOM 109 mg/dL (70-99); POTASSIUM,K 3.6 mEq/L (3.5-5.1); PROTEIN TOTAL,TP 7.1 g/dl (6.4-8.2); SODIUM,NA 140 mEq/L (136-145); TRIGLYCERIDES 40 mg/dL (<150)
[2024-08-10] MEDS: Acetaminophen 650 MG Supp RECTAL ONE (05:32)
[2024-08-10 05:35] LABS: ALANINE AMINOTRANSFERASE,ALT < 6 U/L (16-63); EST CRCL DRUG DOSING (CG) 23.13 mL/min
[2024-08-10] MEDS: Levothyroxine 50 MCG Tab PO SCH (05:36)
[2024-08-10] MEDS: hydrALAZINE 20 MG/ML SDV IVPUSH PRN (05:43)
[2024-08-10] MEDS: Metoprolol Succinate 25 MG Tab.ER PO SCH (08:05)
[2024-08-10] MEDS: Finasteride 5 MG Tab PO SCH (08:05)
[2024-08-10] MEDS: Aspirin 81 MG Tab.EC PO SCH (08:05)
[2024-08-10] MEDS ORDERED: [UNRECOGNIZED DRUG - OTHER] SCH (10:15)
[2024-08-10] MEDS ORDERED: LEVODOPA SCH (10:15)
[2024-08-10] MEDS ORDERED: CARBIDOPA SCH (10:15)
[2024-08-10] MEDS: Heparin Sodium 5,000 Units/ML Vial SUBCUT SCH (10:32)
[2024-08-10] MEDS: Dextrose 5%-0.45% NaCl 1,000 ML IV SCH (10:32)
[2024-08-10] MEDS: Benzocaine 20% Topical Spray UD MUCMEM ONE (11:02)
[2024-08-10] MEDS: Carbidopa/Levodopa 25-100 MG Tab.ER PO SCH ×2 (13:51→21:11)
[2024-08-10] MEDS: Carbidopa/Levodopa 25-100 MG Tab PO SCH (13:51)
[2024-08-10] MEDS ORDERED: Labetalol 100 MG/20 ML MDV IVPUSH PRN (18:17)
[2024-08-10] MEDS ORDERED: Carbidopa/Levodopa 25-100 MG Tab.ER PO SCH (21:00)
[2024-08-10] MEDS: rOPINIRole 0.25 MG Tab PO SCH (21:03)
[2024-08-10] MEDS: atorvaSTATin 40 MG Tab PO SCH (21:12)
[2024-08-11 04:45] LABS: BASOPHILS PERCENT AUTO 0.1 % (0.0-1.0); EOSINOPHILS ABSOLUTE AUTO 0.1 K/mm3 (0.0-0.4); EOSINOPHILS PERCENT AUTO 1.5 % (0.0-6.0); HEMATOCRIT 28.6 % (42.0-52.0); HEMOGLOBIN 9.5 gm/dl (14.0-18.0); IMMATURE GRAN ABSOLUTE AUTO 0.02 K/mm3 (0.00-0.05); IMMATURE GRAN PERCENT AUTO 0.3 % (0.0-0.4); LYMPHOCYTES ABSOLUTE AUTO 1.1 K/mm3 (1.0-4.8); LYMPHOCYTES PERCENT AUTO 15.1 % (24.0-44.0); MEAN CORPUSCULAR HEMOGLOBIN 30.9 pg (28.0-32.0); MEAN CORPUSCULAR HGB CONC 33.2 g/dl (32.0-36.0); MEAN CORPUSCULAR VOLUME 93.2 fl (83.0-99.0); MEAN PLATELET VOLUME 9.2 fl (9.4-12.4); MONOCYTES ABSOLUTE AUTO 0.8 K/mm3 (0.0-0.8); MONOCYTES PERCENT AUTO 10.8 % (0.0-8.0); NEUTROPHILS ABSOLUTE AUTO 5.2 K/mm3 (1.8-7.7); NEUTROPHILS PERCENT AUTO 72.2 % (41.0-71.0); PLATELET COUNT,PLT 161 K/mm3 (150-400); RED BLOOD CELL COUNT 3.07 M/mm3 (4.52-5.90); WHITE BLOOD CELL COUNT,WBC 7.22 K/mm3 (3.9-11.3)
[2024-08-11 05:14] LABS: A/G RATIO 0.7 (1-2); ALBUMIN 2.7 g/dl (3.4-5.0); ALKALINE PHOSPHATASE 60 U/L (46-116); ANION GAP 14.1 (5-15); ASPARTATE AMNIOTRANSFERASE,AST 66 U/L (15-37); BILIRUBIN TOTAL 1.2 mg/dL (0.2-1.0); BLOOD UREA NITROGEN,BUN 39 mg/dL (7-18); BUN/CREATININE RATIO 17.7 (14-18); CALCIUM 8.6 mg/dL (8.5-10.1); CARBON DIOXIDE,CO2 25 mEq/L (21-32); CHLORIDE,CL 103 mEq/L (98-107); CREATININE 2.2 mg/dL (0.7-1.3); EST CRCL DRUG DOSING (CG) 23.13 mL/min; ESTIMATED GFR 28 mL/min (>60); GLUCOSE RANDOM 144 mg/dL (70-99); POTASSIUM,K 3.1 mEq/L (3.5-5.1); PROTEIN TOTAL,TP 6.5 g/dl (6.4-8.2); SODIUM,NA 139 mEq/L (136-145)
[2024-08-11 05:40] LABS: ALANINE AMINOTRANSFERASE,ALT < 6 U/L (16-63)
[2024-08-11] MEDS: Potassium Chloride 20 MEQ Tab.ER PO ONE (09:33)
[2024-08-11] MEDS: Sodium Chloride 0.9% 1,000 ML IV SCH (14:19)
[2024-08-11] MEDS: Amantadine 100 MG Cap PO SCH (14:22)
[2024-08-11] MEDS: Carbidopa/Levodopa 25-100 MG Tab PO SCH (17:45)
[2024-08-12 05:36] LABS: BASOPHILS PERCENT AUTO 0.3 % (0.0-1.0); EOSINOPHILS ABSOLUTE AUTO 0.2 K/mm3 (0.0-0.4); EOSINOPHILS PERCENT AUTO 2.8 % (0.0-6.0); HEMATOCRIT 27.3 % (42.0-52.0); IMMATURE GRAN ABSOLUTE AUTO 0.03 K/mm3 (0.00-0.05); IMMATURE GRAN PERCENT AUTO 0.4 % (0.0-0.4); LYMPHOCYTES ABSOLUTE AUTO 1.2 K/mm3 (1.0-4.8); LYMPHOCYTES PERCENT AUTO 16.8 % (24.0-44.0); MEAN CORPUSCULAR HEMOGLOBIN 31.4 pg (28.0-32.0); MEAN CORPUSCULAR VOLUME 95.1 fl (83.0-99.0); MEAN PLATELET VOLUME 9.2 fl (9.4-12.4); MONOCYTES ABSOLUTE AUTO 0.6 K/mm3 (0.0-0.8); MONOCYTES PERCENT AUTO 8.6 % (0.0-8.0); NEUTROPHILS ABSOLUTE AUTO 4.9 K/mm3 (1.8-7.7); NEUTROPHILS PERCENT AUTO 71.1 % (41.0-71.0); PLATELET COUNT,PLT 171 K/mm3 (150-400); RED BLOOD CELL COUNT 2.87 M/mm3 (4.52-5.90); WHITE BLOOD CELL COUNT,WBC 6.86 K/mm3 (3.9-11.3)
[2024-08-12 06:02] LABS: A/G RATIO 0.6 (1-2); ALBUMIN 2.5 g/dl (3.4-5.0); ALKALINE PHOSPHATASE 63 U/L (46-116); ANION GAP 12.5 (5-15); ASPARTATE AMNIOTRANSFERASE,AST 40 U/L (15-37); BILIRUBIN TOTAL 0.8 mg/dL (0.2-1.0); BLOOD UREA NITROGEN,BUN 41 mg/dL (7-18); BUN/CREATININE RATIO 18.6 (14-18); CALCIUM 8.5 mg/dL (8.5-10.1); CARBON DIOXIDE,CO2 25 mEq/L (21-32); CHLORIDE,CL 104 mEq/L (98-107); CREATININE 2.2 mg/dL (0.7-1.3); EST CRCL DRUG DOSING (CG) 23.32 mL/min; ESTIMATED GFR 28 mL/min (>60); GLUCOSE RANDOM 101 mg/dL (70-99); POTASSIUM,K 3.5 mEq/L (3.5-5.1); PROTEIN TOTAL,TP 6.5 g/dl (6.4-8.2); SODIUM,NA 138 mEq/L (136-145)
[2024-08-12 06:26] LABS: ALANINE AMINOTRANSFERASE,ALT < 6 U/L (16-63)
[2024-08-12 08:35] LABS: IRON,FE 16 ug/dL (65-175); PERCENT FE SATURATION 13 % (20-55); TRANSFERRIN 99 mg/dL (202-364)
[2024-08-12 08:39] LABS: TOTAL IRON BINDING CAPACITY 124 ug/dL (100-400)
[2024-08-13 06:36] LABS: A/G RATIO 0.6 (1-2); ALBUMIN 2.4 g/dl (3.4-5.0); ANION GAP 12.4 (5-15); BILIRUBIN TOTAL 0.8 mg/dL (0.2-1.0); BUN/CREATININE RATIO 17.4 (14-18); CALCIUM 8.7 mg/dL (8.5-10.1); CREATININE 2.3 mg/dL (0.7-1.3); EST CRCL DRUG DOSING (CG) 22.3 mL/min; POTASSIUM,K 3.4 mEq/L (3.5-5.1); PROTEIN TOTAL,TP 6.4 g/dl (6.4-8.2)
[2024-08-14] MEDS: Potassium Bicarbonate/Cit Ac 20 MEQ Effervescent Tab PO ONE ×2 (17:28→20:51)
[2024-08-15 05:09] LABS: CALCIUM 8.6 mg/dL (8.5-10.1); CREATININE 1.8 mg/dL (0.7-1.3); EST CRCL DRUG DOSING (CG) 28.5 mL/min; MAGNESIUM 1.7 mg/dL (1.8-2.4)
[2024-08-15] MEDS: Oxybutynin 5 MG Tab.ER PO SCH (09:10)
[2024-08-15] MEDS: Isosorbide Mononitrate 30 MG Tab.ER PO SCH (09:15)
[2024-08-15] MEDS: Magnesium Oxide 400 MG Tab PO ONE (09:18)
[2024-08-16] MEDS: Magnesium Oxide 400 MG Tab PO SCH (10:07)
[2024-08-16] MEDS: Polyethylene Glycol 3350 Powder 17 GM Packet PO SCH (10:08)
[2024-08-18] MEDS: traZODone 50 MG Tab PO ONE (00:35)
[2024-08-19] MEDS ORDERED: hydrALAZINE 20 MG/ML SDV IVPUSH PRN (13:49)
[2024-08-19] MEDS ORDERED: Labetalol 100 MG/20 ML MDV IVPUSH PRN (13:49)
[2024-08-19] MEDS: Magnesium Sulfate/Water Premix 4 GM in Premix Bag 1 BAG IV ONE (14:45)
[2024-08-19] MEDS: Magnesium Oxide 400 MG Tab PO SCH (20:57)
[2024-08-20] MEDS: Melatonin 3 MG Tab PO ONE (21:46)
[2024-08-21 06:17] LABS: ANION GAP 10.2 (5-15); BUN/CREATININE RATIO 23.5 (14-18); EST CRCL DRUG DOSING (CG) 25.33 mL/min; PHOSPHORUS 3.5 mg/dL (2.6-4.7); POTASSIUM,K 4.2 mEq/L (3.5-5.1)
[2024-08-21] MEDS: LORazepam 1 MG Tab PO ONE (20:58)
[2024-08-21] MEDS ORDERED: Melatonin 3 MG Tab PO ONE (21:00)
[2024-08-21] MEDS ORDERED: Melatonin 3 MG Tab PO SCH (21:00)
[2024-08-21 21:19] VITALS: PULSE 62
[2024-08-22 09:16] VITALS: BP 162/59
== END 2024-08-22 10:17 | DRG 64 ==
LOC: JD.ED 20:34 → JD.MS 08-09 13:13
PROVIDERS: ADMIT Family Medicine; ATTEND Student in an Organized Health Care Education/Training Program
DX: R53.1 Weakness (principal); I10 Essential (primary) hypertension; I63.9 Cerebral infarction, unspecified; G92.8 Other toxic encephalopathy; I13.0 Hypertensive heart and chronic kidney disease with heart failure and stage 1 through stage 4 chronic kidney disease, or unspecified chronic kidney disease; G20.A1 Parkinson's disease without dyskinesia, without mention of fluctuations; E78.00 Pure hypercholesterolemia, unspecified; K21.9 Gastro-esophageal reflux disease without esophagitis; N40.0 Benign prostatic hyperplasia without lower urinary tract symptoms; H26.9 Unspecified cataract; G89.29 Other chronic pain; M19.90 Unspecified osteoarthritis, unspecified site; G43.909 Migraine, unspecified, not intractable, without status migrainosus; R29.810 Facial weakness; F80.9 Developmental disorder of speech and language, unspecified; Z66 Do not resuscitate; N18.32 Chronic kidney disease, stage 3b; I50.9 Heart failure, unspecified; E83.42 Hypomagnesemia; M10.9 Gout, unspecified; R41.0 Disorientation, unspecified; E03.9 Hypothyroidism, unspecified; R29.706 NIHSS score 6; R26.2 Difficulty in walking, not elsewhere classified; R13.10 Dysphagia, unspecified; G83.14 Monoplegia of lower limb affecting left nondominant side; Z79.1 Long term (current) use of non-steroidal anti-inflammatories (NSAID); Z79.82 Long term (current) use of aspirin; Z79.899 Other long term (current) drug therapy; Z79.02 Long term (current) use of antithrombotics/antiplatelets; Z98.49 Cataract extraction status, unspecified eye; Z90.49 Acquired absence of other specified parts of digestive tract
CPT/HCPCS: 36415; 51798; 70450; 70450-26; 70496; 70496-26; 70498; 70498-26; 70551; 70551-26; 71045; 71045-26; 80048; 80053; 80061; 80306; 80307; 81001; 82140; 82550; 82607; 82728; 82947; 83036; 83540; 83735; 83880; 84100; 84439; 84443; 84466; 84484; 85025; 87428-QW; 93005; 93010; 93306; 96365; 96375; 96376; 97110-GP; 97116-GP; 97161-GP; 97530-GP; 99285; 99285-25; A9270-GY; J0360; J1644; J1815; J1940; J3475; J3490; J7030; J7799; Q9967

== ENCOUNTER 2024-08-25 09:25 | Emergency (ER) | payer MEDICARE, OTHER ==
[2024-08-25] MEDS: Sodium Chloride 0.9% 1,000 ML IV SCH (10:07)
[2024-08-25] MEDS: Sodium Chloride 0.9% 10 ML Syringe FLUSH PRN (10:08)
[2024-08-25 10:20] LABS: BASOPHILS PERCENT AUTO 0.1 % (0.0-1.0); EOSINOPHILS ABSOLUTE AUTO 0.2 K/mm3 (0.0-0.4); EOSINOPHILS PERCENT AUTO 2.1 % (0.0-6.0); HEMATOCRIT 25.7 % (42.0-52.0); HEMOGLOBIN 8.4 gm/dl (14.0-18.0); IMMATURE GRAN ABSOLUTE AUTO 0.05 K/mm3 (0.00-0.05); IMMATURE GRAN PERCENT AUTO 0.7 % (0.0-0.4); LYMPHOCYTES PERCENT AUTO 13.3 % (24.0-44.0); MEAN CORPUSCULAR HEMOGLOBIN 31.6 pg (28.0-32.0); MEAN CORPUSCULAR HGB CONC 32.7 g/dl (32.0-36.0); MEAN CORPUSCULAR VOLUME 96.6 fl (83.0-99.0); MEAN PLATELET VOLUME 8.4 fl (9.4-12.4); MONOCYTES ABSOLUTE AUTO 0.5 K/mm3 (0.0-0.8); MONOCYTES PERCENT AUTO 7.2 % (0.0-8.0); NEUTROPHILS ABSOLUTE AUTO 5.7 K/mm3 (1.8-7.7); NEUTROPHILS PERCENT AUTO 76.6 % (41.0-71.0); PLATELET COUNT,PLT 331 K/mm3 (150-400); RED BLOOD CELL COUNT 2.66 M/mm3 (4.52-5.90)
[2024-08-25 10:51] LABS: A/G RATIO 0.7 (1-2); ALBUMIN 2.8 g/dl (3.4-5.0); ANION GAP 12.4 (5-15); BILIRUBIN TOTAL 0.8 mg/dL (0.2-1.0); BUN/CREATININE RATIO 22.4 (14-18); C-REACTIVE PROTEIN 7.68 mg/dL (<0.30); CALCIUM 9.1 mg/dL (8.5-10.1); CREATININE 2.5 mg/dL (0.7-1.3); EST CRCL DRUG DOSING (CG) 21.9 mL/min; MAGNESIUM 2.3 mg/dL (1.8-2.4); POTASSIUM,K 4.4 mEq/L (3.5-5.1)
[2024-08-25 11:30] LABS: APPEARANCE,URINE CLOUDY (Clear); BILIRUBIN,URINE NEGATIVE (Negative); COLOR,URINE YELLOW (Yellow); GLUCOSE,URINE NEGATIVE (Negative); KETONES,URINE NEGATIVE (Negative); LEUKOCYTE ESTERASE,URINE 3+ (Negative); NITRITE,URINE POSITIVE (Negative); OCCULT BLOOD,URINE 2+ (Negative); PROTEIN,URINE 2+ (Negative); UROBILINOGEN,URINE 0.2 (0.2-1.0)
[2024-08-25 11:44] LABS: EPITHELIAL CELLS,URINE 0-5 /hpf (0-5); RBC,URINE 0-5 /hpf (0-5); WBC CLUMPS,URINE FEW /hpf (NOT SEEN); WBC,URINE 20-30 /hpf (0-5)
[2024-08-25 11:46] LABS: BACTERIA,URINE MANY /hpf (FEW); HYALINE CASTS,URINE 0-5 /lpf (0-5); MUCUS,URINE FEW /hpf (FEW)
[2024-08-25] MEDS ORDERED: cefTRIAXone 2 GM in Sodium Chloride 0.9% 100 ML IV ONE (11:46)
[2024-08-25] MEDS: cefTRIAXone 2 GM Vial IV SCH (12:06)
[2024-08-25 13:21] VITALS: BP 160/71; PULSE 62
== END 2024-08-25 12:25 | disposition home or self-care (01) ==
LOC: JD.ED 09:25
DX: R40.4 Transient alteration of awareness (principal); N10 Acute pyelonephritis; N28.9 Disorder of kidney and ureter, unspecified; I10 Essential (primary) hypertension; E78.00 Pure hypercholesterolemia, unspecified; M19.90 Unspecified osteoarthritis, unspecified site; Z90.49 Acquired absence of other specified parts of digestive tract; Z79.82 Long term (current) use of aspirin; Z79.890 Hormone replacement therapy; Z79.899 Other long term (current) drug therapy
CPT/HCPCS: 36415; 70450; 71045; 80053; 81001; 83735; 84484; 85025; 86140; 87428; 93005; 96361; 96374; 99285; C1758; J0696; J7030

== ENCOUNTER 2024-09-30 17:21 | Inpatient (IN) | payer MEDICARE, OTHER ==
[2024-09-30 18:36] LABS: HEMATOCRIT 22.5 % (42.0-52.0); MEAN CORPUSCULAR HEMOGLOBIN 30.7 pg (28.0-32.0); MEAN CORPUSCULAR HGB CONC 31.1 g/dl (32.0-36.0); MEAN CORPUSCULAR VOLUME 98.7 fl (83.0-99.0); MEAN PLATELET VOLUME 8.4 fl (9.4-12.4); PLATELET COUNT,PLT 220 K/mm3 (150-400); RED BLOOD CELL COUNT 2.28 M/mm3 (4.52-5.90); WHITE BLOOD CELL COUNT,WBC 6.12 K/mm3 (3.9-11.3)
[2024-09-30 18:45] LABS: CORONAVIRUS COVID-19 NAA NEGATIVE (NEGATIVE); INFLUENZA A NAA NEGATIVE (NEGATIVE); RESPIRATORY SYNCYTIAL VIR NAA NEGATIVE (NEGATIVE)
[2024-09-30 18:51] LABS: INR 1.16; PROTHROMBIN TIME 12.2 SECONDS (9.7-12.0)
[2024-09-30 19:03] LABS: LACTIC ACID 0.5 mmol/L (0.4-2.0)
[2024-09-30 19:09] LABS: A/G RATIO 0.6 (1-2); ALANINE AMINOTRANSFERASE,ALT 6 U/L (16-63); ALBUMIN 2.5 g/dl (3.4-5.0); ALKALINE PHOSPHATASE 66 U/L (46-116); ANION GAP 11.3 (5-15); ASPARTATE AMNIOTRANSFERASE,AST 16 U/L (15-37); BLOOD UREA NITROGEN,BUN 27 mg/dL (7-18); BUN/CREATININE RATIO 14.2 (14-18); C-REACTIVE PROTEIN 9.15 mg/dL (<0.30); CALCIUM 8.4 mg/dL (8.5-10.1); CARBON DIOXIDE,CO2 29 mEq/L (21-32); CHLORIDE,CL 106 mEq/L (98-107); CREATININE 1.9 mg/dL (0.7-1.3); ESTIMATED GFR 34 mL/min (>60); GLUCOSE RANDOM 109 mg/dL (70-99); POTASSIUM,K 4.3 mEq/L (3.5-5.1); PROTEIN TOTAL,TP 6.5 g/dl (6.4-8.2); SODIUM,NA 142 mEq/L (136-145)
[2024-09-30 19:11] LABS: ANISOCYTOSIS 1+ SLIGHT; BAND PERCENT MAN 0 % (0-10); BASOPHILS PERCENT MAN 1 (0.2-1.2); EOSINOPHILS PERCENT MAN 3 % (0.8-7.0); HYPOCHROMASIA 1+ SLIGHT; LYMPHOCYTES % ATYPICAL MANUAL 0 %; LYMPHOCYTES PERCENT MAN 14 % (20-40); MONOCYTES PERCENT MAN 11 % (2-10); OVALOCYTES 1+ SLIGHT; PLATELET COUNT ESTIMATE ADEQUATE; POIKILOCYTOSIS 1+ SLIGHT
[2024-09-30 19:16] LABS: TROPONIN I HIGH SENSITIVITY 93 pg/mL (<=76)
[2024-09-30] MEDS: Furosemide 40 MG/4 ML VIAL IVPUSH ONE (19:48)
[2024-09-30] MEDS: Sodium Chloride 0.9% 10 ML Syringe FLUSH PRN (19:49)
[2024-09-30 20:05] LABS: APPEARANCE,URINE CLEAR (Clear); BILIRUBIN,URINE NEGATIVE (Negative); COLOR,URINE YELLOW (Yellow); GLUCOSE,URINE NEGATIVE (Negative); KETONES,URINE NEGATIVE (Negative); LEUKOCYTE ESTERASE,URINE NEGATIVE (Negative); NITRITE,URINE NEGATIVE (Negative); OCCULT BLOOD,URINE NEGATIVE (Negative); PH,URINE 6.5 (5.0-8.0); PROTEIN,URINE 1+ (Negative); UROBILINOGEN,URINE 0.2 (0.2-1.0)
[2024-09-30] MEDS ORDERED: Albuterol/Ipratropium 3.0-0.5 MG/3 ML Neb Soln NEB PRN (20:14)
[2024-09-30] MEDS ORDERED: cefTRIAXone 1 GM in Sodium Chloride 0.9% 100 ML IV ONE (20:14)
[2024-09-30 20:37] LABS: EPITHELIAL CELLS,URINE NOT SEEN /hpf (0-5); RBC,URINE 0-5 /hpf (0-5); WBC,URINE 0-5 /hpf (0-5)
[2024-09-30 20:41] LABS: RENAL EPITHELIAL CELLS,URINE 0-5 /hpf (0-5)
[2024-09-30 20:42] LABS: BACTERIA,URINE RARE /hpf (FEW); HYALINE CASTS,URINE 0-5 /lpf (0-5); MUCUS,URINE NOT SEEN /hpf (FEW)
[2024-09-30] MEDS: cefTRIAXone 1 GM Vial IV ONE (20:56)
[2024-09-30] MEDS: Metoprolol Succinate 25 MG Tab.ER PO ONE (21:46)
[2024-09-30] MEDS: Carbidopa/Levodopa 25-100 MG Tab.ER PO SCH (21:47)
[2024-09-30] MEDS: Isosorbide Mononitrate 30 MG Tab.ER PO ONE (21:47)
[2024-09-30] MEDS: FLUoxetine 10 MG Cap PO ONE (21:47)
[2024-10-01 06:39] LABS: HEMATOCRIT 27.7 % (42.0-52.0); HEMOGLOBIN 8.9 gm/dl (14.0-18.0); MEAN CORPUSCULAR HEMOGLOBIN 31.1 pg (28.0-32.0); MEAN CORPUSCULAR HGB CONC 32.1 g/dl (32.0-36.0); MEAN CORPUSCULAR VOLUME 96.9 fl (83.0-99.0); MEAN PLATELET VOLUME 8.6 fl (9.4-12.4); PLATELET COUNT,PLT 210 K/mm3 (150-400); RED BLOOD CELL COUNT 2.86 M/mm3 (4.52-5.90); WHITE BLOOD CELL COUNT,WBC 5.93 K/mm3 (3.9-11.3)
[2024-10-01 07:00] LABS: A/G RATIO 0.6 (1-2); ALBUMIN 2.5 g/dl (3.4-5.0); ALKALINE PHOSPHATASE 62 U/L (46-116); ANION GAP 13.2 (5-15); ASPARTATE AMNIOTRANSFERASE,AST 15 U/L (15-37); BILIRUBIN TOTAL 1.2 mg/dL (0.2-1.0); BLOOD UREA NITROGEN,BUN 28 mg/dL (7-18); BUN/CREATININE RATIO 14.7 (14-18); CALCIUM 8.6 mg/dL (8.5-10.1); CARBON DIOXIDE,CO2 29 mEq/L (21-32); CHLORIDE,CL 105 mEq/L (98-107); CREATININE 1.9 mg/dL (0.7-1.3); ESTIMATED GFR 34 mL/min (>60); GLUCOSE RANDOM 97 mg/dL (70-99); POTASSIUM,K 4.2 mEq/L (3.5-5.1); PROTEIN TOTAL,TP 6.6 g/dl (6.4-8.2); SODIUM,NA 143 mEq/L (136-145)
[2024-10-01 07:14] LABS: ALANINE AMINOTRANSFERASE,ALT < 6 U/L (16-63)
[2024-10-01] MEDS ORDERED: Carbidopa/Levodopa 25-100 MG Tab PO SCH (09:30)
[2024-10-01] MEDS: Furosemide 40 MG/4 ML VIAL IVPUSH ONE (10:20)
[2024-10-01] MEDS: Heparin Sodium 5,000 Units/ML Vial SUBCUT SCH (10:20)
[2024-10-01] MEDS: rOPINIRole 0.25 MG Tab PO SCH (10:21)
[2024-10-01] MEDS: Ferrous Sulfate 324 MG Tab.EC PO SCH (10:23)
[2024-10-01] MEDS: Finasteride 5 MG Tab PO SCH (10:23)
[2024-10-01] MEDS: Aspirin 81 MG Tab.EC PO SCH (10:23)
[2024-10-01] MEDS: Sodium Bicarbonate 650 MG Tab PO SCH (10:25)
[2024-10-01] MEDS: FLUoxetine 10 MG Cap PO SCH (10:26)
[2024-10-01] MEDS: Allopurinol 100 MG Tab PO SCH (10:26)
[2024-10-01] MEDS: Isosorbide Mononitrate 30 MG Tab.ER PO SCH (10:26)
[2024-10-01] MEDS: Metoprolol Succinate 25 MG Tab.ER PO SCH (10:26)
[2024-10-01] MEDS: Carbidopa/Levodopa 25-100 MG Tab PO SCH (10:27)
[2024-10-01] MEDS: amLODIPine 5 MG Tab PO SCH (10:35)
[2024-10-01] MEDS: cefTRIAXone 1 GM Vial IVPUSH SCH (20:58)
[2024-10-01] MEDS: Carbidopa/Levodopa 25-100 MG Tab.ER PO SCH (21:02)
[2024-10-01] MEDS: atorvaSTATin 40 MG Tab PO SCH (21:03)
[2024-10-02] MEDS: Levothyroxine 50 MCG Tab PO SCH (05:40)
[2024-10-02 06:02] LABS: HEMATOCRIT 29.7 % (42.0-52.0); HEMOGLOBIN 9.7 gm/dl (14.0-18.0); MEAN CORPUSCULAR HEMOGLOBIN 30.9 pg (28.0-32.0); MEAN CORPUSCULAR HGB CONC 32.7 g/dl (32.0-36.0); MEAN CORPUSCULAR VOLUME 94.6 fl (83.0-99.0); MEAN PLATELET VOLUME 8.7 fl (9.4-12.4); PLATELET COUNT,PLT 238 K/mm3 (150-400); RED BLOOD CELL COUNT 3.14 M/mm3 (4.52-5.90); WHITE BLOOD CELL COUNT,WBC 7.73 K/mm3 (3.9-11.3)
[2024-10-02 06:30] LABS: A/G RATIO 0.6 (1-2); ALBUMIN 2.5 g/dl (3.4-5.0); ALKALINE PHOSPHATASE 66 U/L (46-116); ASPARTATE AMNIOTRANSFERASE,AST 13 U/L (15-37); BILIRUBIN TOTAL 1.2 mg/dL (0.2-1.0); BLOOD UREA NITROGEN,BUN 27 mg/dL (7-18); BUN/CREATININE RATIO 14.2 (14-18); C-REACTIVE PROTEIN 16.43 mg/dL (<0.30); CALCIUM 8.8 mg/dL (8.5-10.1); CARBON DIOXIDE,CO2 28 mEq/L (21-32); CHLORIDE,CL 103 mEq/L (98-107); CREATININE 1.9 mg/dL (0.7-1.3); EST CRCL DRUG DOSING (CG) 27.81 mL/min; ESTIMATED GFR 34 mL/min (>60); GLUCOSE RANDOM 109 mg/dL (70-99); PROTEIN TOTAL,TP 6.8 g/dl (6.4-8.2); SODIUM,NA 142 mEq/L (136-145)
[2024-10-02 07:08] LABS: ALANINE AMINOTRANSFERASE,ALT < 6 U/L (16-63)
[2024-10-02] MEDS: Sennosides 8.6 MG Tab PO SCH (08:46)
[2024-10-02] MEDS: Furosemide 40 MG/4 ML VIAL IVPUSH ONE (08:47)
[2024-10-02] MEDS: Acetaminophen 325 MG Tab PO PRN (08:48)
[2024-10-02] MEDS: Sodium Chloride 0.9% 1,000 ML IV ONE (13:19)
[2024-10-02 14:52] LABS: HEMATOCRIT 30.1 % (42.0-52.0); HEMOGLOBIN 9.5 gm/dl (14.0-18.0); MEAN CORPUSCULAR HEMOGLOBIN 30.7 pg (28.0-32.0); MEAN CORPUSCULAR HGB CONC 31.6 g/dl (32.0-36.0); MEAN CORPUSCULAR VOLUME 97.4 fl (83.0-99.0); MEAN PLATELET VOLUME 8.6 fl (9.4-12.4); PLATELET COUNT,PLT 244 K/mm3 (150-400); RED BLOOD CELL COUNT 3.09 M/mm3 (4.52-5.90); WHITE BLOOD CELL COUNT,WBC 7.52 K/mm3 (3.9-11.3)
[2024-10-02 15:44] LABS: A/G RATIO 0.6 (1-2); ALBUMIN 2.5 g/dl (3.4-5.0); ANION GAP 14.1 (5-15); BILIRUBIN TOTAL 1.2 mg/dL (0.2-1.0); CALCIUM 8.6 mg/dL (8.5-10.1); EST CRCL DRUG DOSING (CG) 26.42 mL/min; POTASSIUM,K 4.1 mEq/L (3.5-5.1); PROTEIN TOTAL,TP 6.9 g/dl (6.4-8.2)
[2024-10-03 04:41] LABS: HEMATOCRIT 28.8 % (42.0-52.0); HEMOGLOBIN 9.4 gm/dl (14.0-18.0); MEAN CORPUSCULAR HGB CONC 32.6 g/dl (32.0-36.0); PLATELET COUNT,PLT 236 K/mm3 (150-400); RED BLOOD CELL COUNT 3.03 M/mm3 (4.52-5.90); WHITE BLOOD CELL COUNT,WBC 6.72 K/mm3 (3.9-11.3)
[2024-10-03 05:10] LABS: A/G RATIO 0.6 (1-2); ALBUMIN 2.3 g/dl (3.4-5.0); ALKALINE PHOSPHATASE 65 U/L (46-116); ANION GAP 13.9 (5-15); ASPARTATE AMNIOTRANSFERASE,AST 18 U/L (15-37); BILIRUBIN TOTAL 0.8 mg/dL (0.2-1.0); BLOOD UREA NITROGEN,BUN 25 mg/dL (7-18); BUN/CREATININE RATIO 13.9 (14-18); CALCIUM 8.4 mg/dL (8.5-10.1); CARBON DIOXIDE,CO2 28 mEq/L (21-32); CHLORIDE,CL 102 mEq/L (98-107); CREATININE 1.8 mg/dL (0.7-1.3); ESTIMATED GFR 36 mL/min (>60); GLUCOSE RANDOM 102 mg/dL (70-99); POTASSIUM,K 3.9 mEq/L (3.5-5.1); PROTEIN TOTAL,TP 6.5 g/dl (6.4-8.2); SODIUM,NA 140 mEq/L (136-145)
[2024-10-03 05:38] LABS: ALANINE AMINOTRANSFERASE,ALT < 6 U/L (16-63)
[2024-10-03] MEDS: Furosemide 20 MG Tab PO SCH (09:39)
[2024-10-04 07:14] LABS: HEMATOCRIT 29.4 % (42.0-52.0); HEMOGLOBIN 9.4 gm/dl (14.0-18.0); MEAN CORPUSCULAR HEMOGLOBIN 30.7 pg (28.0-32.0); MEAN CORPUSCULAR VOLUME 96.1 fl (83.0-99.0); MEAN PLATELET VOLUME 8.5 fl (9.4-12.4); PLATELET COUNT,PLT 272 K/mm3 (150-400); RED BLOOD CELL COUNT 3.06 M/mm3 (4.52-5.90); WHITE BLOOD CELL COUNT,WBC 6.68 K/mm3 (3.9-11.3)
[2024-10-04 07:50] LABS: A/G RATIO 0.6 (1-2); ALBUMIN 2.5 g/dl (3.4-5.0); ALKALINE PHOSPHATASE 74 U/L (46-116); ANION GAP 11.5 (5-15); ASPARTATE AMNIOTRANSFERASE,AST 17 U/L (15-37); BILIRUBIN TOTAL 0.7 mg/dL (0.2-1.0); BLOOD UREA NITROGEN,BUN 24 mg/dL (7-18); BUN/CREATININE RATIO 12.6 (14-18); C-REACTIVE PROTEIN 14.24 mg/dL (<0.30); CALCIUM 8.6 mg/dL (8.5-10.1); CARBON DIOXIDE,CO2 29 mEq/L (21-32); CHLORIDE,CL 101 mEq/L (98-107); CREATININE 1.9 mg/dL (0.7-1.3); EST CRCL DRUG DOSING (CG) 26.62 mL/min; ESTIMATED GFR 34 mL/min (>60); GLUCOSE RANDOM 122 mg/dL (70-99); POTASSIUM,K 3.5 mEq/L (3.5-5.1); PROTEIN TOTAL,TP 6.9 g/dl (6.4-8.2); SODIUM,NA 138 mEq/L (136-145)
[2024-10-04 07:58] LABS: ALANINE AMINOTRANSFERASE,ALT < 6 U/L (16-63)
[2024-10-04 08:41] VITALS: BP 151/67; PULSE 69
== END 2024-10-04 12:05 | DRG 189 ==
LOC: JD.ED 17:21 → JD.MS 20:24
PROVIDERS: ADMIT Internal Medicine; ATTEND Internal Medicine
PROC: 30233N1 Transfusion of Nonautologous Red Blood Cells into Peripheral Vein, Percutaneous Approach (ICD-10-PCS; principal; 2024-09-30)
DX: J96.01 Acute respiratory failure with hypoxia (principal); I13.0 Hypertensive heart and chronic kidney disease with heart failure and stage 1 through stage 4 chronic kidney disease, or unspecified chronic kidney disease; N39.0 Urinary tract infection, site not specified; H91.90 Unspecified hearing loss, unspecified ear; D63.1 Anemia in chronic kidney disease; Z66 Do not resuscitate; K21.9 Gastro-esophageal reflux disease without esophagitis; N40.0 Benign prostatic hyperplasia without lower urinary tract symptoms; E78.00 Pure hypercholesterolemia, unspecified; M19.90 Unspecified osteoarthritis, unspecified site; M54.9 Dorsalgia, unspecified; G89.29 Other chronic pain; Z79.82 Long term (current) use of aspirin; Z79.890 Hormone replacement therapy; G43.909 Migraine, unspecified, not intractable, without status migrainosus; I50.9 Heart failure, unspecified; N18.32 Chronic kidney disease, stage 3b; G20.B2 Parkinson's disease with dyskinesia, with fluctuations; R41.0 Disorientation, unspecified; D64.9 Anemia, unspecified; E03.9 Hypothyroidism, unspecified; J44.9 Chronic obstructive pulmonary disease, unspecified; F41.9 Anxiety disorder, unspecified; F01.50 Vascular dementia, unspecified severity, without behavioral disturbance, psychotic disturbance, mood disturbance, and anxiety; Z79.899 Other long term (current) drug therapy; Z90.49 Acquired absence of other specified parts of digestive tract; Z98.890 Other specified postprocedural states; Z86.73 Personal history of transient ischemic attack (TIA), and cerebral infarction without residual deficits
CPT/HCPCS: 0241U; 36415; 36430; 70450; 71045; 71046; 80053; 81001; 82272; 82947; 83605; 83880; 84484; 85007; 85027; 85610; 86140; 86850; 86900; 86901; 86922; 87040; 87641; 93005; 93306; 94760; 94761; 96374; 97110; 97161; 97530; 99285; 93010; A9270-GY; C1758; J0696; J1644; J1940; J7030; P9016